=== PATIENT | male | born 1935 | race Asian ===

== ENCOUNTER 2018-01-08 17:26 | Inpatient (IN) | payer MEDICARE ==
[~2018-01-08] VITALS: Ht 177.8 cm; Wt 74.0 kg
[~2018-01-08 17:26] MED LIST: ASPI81TA52 PO; ATOR10TA PO; CHOL200035 PO; CYAN100070 PO; FISH1CAP2 PO; GABA-341 PO; INSU100V13 SQ; IRON-11 PO; LANS15CA10 PO; LANTUS SQ; LEVO75TA57 PO; MECL12.584 PO; MULT1TAB PO; OXYC-150 PO; RESERVATROL PO; UBIQUINOL; VALS80TA2 PO
[2018-01-08] MEDS ORDERED: normal saline 1000ML IV soln IVB ONE (18:10)
[2018-01-08 18:29] LABS: CLARITY,URINE CLEAR (Clear); COLOR,URINE STRAW (Yellow); GLUCOSE, URINE NEGATIVE (Neg); KETONES,URINE NEGATIVE (Neg); LEUKOCYTE ESTERASE ,URINE NEGATIVE (Neg); NITRITES, URINE NEGATIVE (Neg); OCCULT BLOOD,URINE TRACE-LYSED (Neg); PH,URINE 6.5 (4.8-8.0); PROTEIN,URINE 30 mg/dl (Neg); UROBILINOGEN,URINE 0.2 E.U/dL (0.2-1.0)
[2018-01-08 18:34] LABS: UA COLLECTION TYPE FOLEY CATH
[2018-01-08 18:39] LABS: ALANINE AMINOTRANSFERASE 25 U/L (12-78); ALBUMIN 3.5 G/DL (3.4-5.0); ALKALINE PHOSPHATASE 101 IU/L (46-116); ANION GAP 7 (8-16); ASPARTATE AMINO TRANSFERASE 17 U/L (10-37); BILIRUBIN,TOTAL 0.3 MG/DL (0.1-1.0); BLOOD UREA NITROGEN 25 MG/DL (7-18); BUN/CREATININE RATIO 26.3 (5.4-32.0); CALCIUM 9.1 MG/DL (8.5-10.1); CHLORIDE 96 MMOL/L (99-107); CREATININE 0.95 MG/DL (0.60-1.10); GLUCOSE 165 MG/DL (70-104); POTASSIUM 4.7 MMOL/L (3.5-5.1); SODIUM 129 MMOL/L (135-145); TOTAL CARBON DIOXIDE 26.3 MMOL/L (24-32); TOTAL PROTEIN 7.1 G/DL (6.4-8.2); eGFR 76 ML/MIN
[2018-01-08 18:41] LABS: URINE AMPHETAMINE SCREEN NEGATIVE (Neg); URINE BARBITUATE SCREEN NEGATIVE (Neg); URINE BENZODIAZEPINES SCREEN NEGATIVE (Neg); URINE CANNABINOID SCREEN NEGATIVE (Neg); URINE COCAINE SCREEN NEGATIVE (Neg); URINE METHADONE SCREEN NEGATIVE (Neg); URINE OPIATE SCREEN NEGATIVE (Neg); URINE PHENCYCLIDINE SCREEN NEGATIVE (Neg)
[2018-01-08 18:43] LABS: BACTERIA,URINE NONE SEEN /HPF (Neg); SQUAMOUS EPITHELIAL CELL,UR NONE SEEN /LPF (FEW); WBC,URINE 0-4 /HPF (0-4)
[2018-01-08 18:43] LABS: TROPONIN I < 0.04 NG/ML (0.0-0.05)
[2018-01-08 18:44] LABS: MUCUS STRANDS NONE SEEN /LPF (Neg)
[2018-01-08 18:51] LABS: ETHANOL < 0.010 GM/DL (0.0-0.010)
[2018-01-08 19:06] LABS: BASOPHILS % (AUTO) 0.2 % (0-1); EOSINOPHILS % (AUTO) 0.3 % (0-6); HEMATOCRIT 35.5 % (42.0-52.0); HEMOGLOBIN 11.9 g/dl (14.0-17.9); LYMPHOCYTES # (AUTO) 0.8 X10'3 (1.1-4.8); LYMPHOCYTES % (AUTO) 13.3 % (21-51); MEAN CORPUSCULAR HEMOGLOBIN 29.3 PG (27.0-31.0); MEAN CORPUSCULAR HGB CONC 33.5 % (33.0-36.5); MEAN CORPUSCULAR VOLUME 87.3 FL (78-98); MEAN PLATELET VOLUME 9.4 FL (7.4-10.4); MONOCYTES # (AUTO) 0.4 X10'3 (0-0.9); MONOCYTES % (AUTO) 6.6 % (2-12); NEUTROPHILS # (AUTO) 4.8 X10'3 (1.8-7.7); NEUTROPHILS % (AUTO) 79.6 % (42-75); PLATELET COUNT 173 X10'3 (140-440); RED BLOOD COUNT 4.07 X10'6 (4.70-6.10); RED CELL DISTRIBUTION WIDTH 14.2 % (11.5-14.5)
[2018-01-08 19:22] LABS: PARTIAL THROMBOPLASTIN TIME 25 SECONDS (22-32); PROTHROMBIN TIME 10.6 SECONDS (9.0-12.0)
[2018-01-08] MEDS ORDERED: INSU100V9 SQ (19:47)
[2018-01-08] MEDS ORDERED: CLOP75TA15 PO (19:47)
[2018-01-08] MEDS ORDERED: LOSA50TA3 PO (19:47)
[2018-01-08] MEDS ORDERED: glucagon, human recombinant 1mg kit SUBCUT PRN (20:30)
[2018-01-08] MEDS ORDERED: acetaminophen 325mg tablet PO PRN (20:30)
[2018-01-08] MEDS ORDERED: MESSAGE TO PHARMACY PO ONE (20:30)
[2018-01-08] MEDS ORDERED: dextrose ORAL solution 15 GM/59 ML bottle PO PRN ×2 (20:30)
[2018-01-08] MEDS ORDERED: mag hydrox/Alum hydrox/simeth 30ml oral suspension PO PRN (20:30)
[2018-01-08] MEDS ORDERED: ondansetron/PF 4mg/2ml inj IV PRN (20:30)
[2018-01-08] MEDS ORDERED: dextrose 50%-water 50ml dispensing syringe IV PRN ×2 (20:30)
[2018-01-08 21:03] LABS: CHOL/HDL RATIO 2.4 (0.00-4.99); CHOLESTEROL 150 MG/DL (0-200); HDL CHOLESTEROL 62 MG/DL (35-60); LDL CHOLESTEROL 75 MG/DL (50-100); TRIGLYCERIDES 49 MG/DL (20-135)
[2018-01-08] MEDS: normal saline 1000ml 1,000 ML IV SCH (22:35)
[2018-01-08] MEDS: atorvastatin 10mg tablet PO SCH (22:35)
[2018-01-08 22:45] VITALS: BP 138/81
[2018-01-09 05:00] VITALS: BP 187/76
[2018-01-09 06:45] LABS: BASOPHILS % (AUTO) 0.4 % (0-1); EOSINOPHILS # (AUTO) 0.2 X10'3 (0-0.9); EOSINOPHILS % (AUTO) 2.4 % (0-6); HEMATOCRIT 34.8 % (42.0-52.0); HEMOGLOBIN 11.6 g/dl (14.0-17.9); LYMPHOCYTES # (AUTO) 1.5 X10'3 (1.1-4.8); LYMPHOCYTES % (AUTO) 22.4 % (21-51); MEAN CORPUSCULAR HEMOGLOBIN 29.1 PG (27.0-31.0); MEAN CORPUSCULAR HGB CONC 33.4 % (33.0-36.5); MEAN CORPUSCULAR VOLUME 87.3 FL (78-98); MEAN PLATELET VOLUME 9.7 FL (7.4-10.4); MONOCYTES # (AUTO) 0.9 X10'3 (0-0.9); NEUTROPHILS # (AUTO) 4.1 X10'3 (1.8-7.7); NEUTROPHILS % (AUTO) 61.8 % (42-75); PLATELET COUNT 166 X10'3 (140-440); RED BLOOD COUNT 3.98 X10'6 (4.70-6.10); RED CELL DISTRIBUTION WIDTH 14.2 % (11.5-14.5); WHITE BLOOD COUNT 6.6 X10'3 (4.5-11.0)
[2018-01-09 06:52] LABS: ALBUMIN 2.9 G/DL (3.4-5.0); ANION GAP 6 (8-16); BLOOD UREA NITROGEN 17 MG/DL (7-18); BUN/CREATININE RATIO 23.3 (5.4-32.0); CALCIUM 8.4 MG/DL (8.5-10.1); CHLORIDE 103 MMOL/L (99-107); CREATININE 0.73 MG/DL (0.60-1.10); GLUCOSE 132 MG/DL (70-104); POTASSIUM 3.7 MMOL/L (3.5-5.1); SODIUM 136 MMOL/L (135-145); TOTAL CARBON DIOXIDE 26.8 MMOL/L (24-32); eGFR > 90 ML/MIN
[2018-01-09] MEDS: levoTHYROXINE 75mcg tablet PO SCH (07:56)
[2018-01-09] MEDS: aspirin 81mg tablet.DR PO SCH (08:00)
[2018-01-09] MEDS ORDERED: RESERVATROL PO SCH (08:00)
[2018-01-09] MEDS: OMEGA-3/DHA/EPA/FISH OIL 1 EACH CAPSULE.DR PO SCH (08:00)
[2018-01-09] MEDS: insulin glargine (Lantus) pen - multi-dose SQ SCH (08:13)
[2018-01-09] MEDS: losartan 50mg tablet PO SCH (09:50)
[2018-01-09] MEDS: clopidogrel 75mg tablet PO SCH (09:51)
[2018-01-09] MEDS: cyanocobalamin 500mcg tablet PO SCH (09:51)
[2018-01-09] MEDS: vitamin D (cholecalciferol) 1,000 unit tablet PO SCH (09:51)
[2018-01-09] MEDS: ferrous sulfate 325mg tablet PO SCH (09:51)
[2018-01-09] MEDS: pantoprazole 40mg Tablet.DR PO SCH (09:51)
[2018-01-09 10:00] VITALS: BP 191/62
[2018-01-09] MEDS ORDERED: pneumococcal 23-VAL P-sac vacc 25 mcg/0.5ml vial IMVAC ONE (10:00)
[2018-01-09] MEDS: multivitamins, therapeutics tablet PO SCH (10:05)
[2018-01-09] MEDS: amLODIPine 2.5mg tablet PO SCH (13:20)
[2018-01-09] MEDS: insulin Lispro (HumaLOG) vial - multi-dose SQ SCH ×2 (13:24→20:00)
[2018-01-09] MEDS: normal saline 1000ml 1,000 ML IV SCH (16:28)
[2018-01-09 18:00] VITALS: BP 173/69
[2018-01-09] MEDS: atorvastatin 10mg tablet PO SCH (20:02)
[2018-01-09 22:00] VITALS: BP 172/80
[2018-01-10 06:00] VITALS: BP 173/69
[2018-01-10 06:00] LABS: BASOPHILS % (AUTO) 0.5 % (0-1); EOSINOPHILS # (AUTO) 0.3 X10'3 (0-0.9); EOSINOPHILS % (AUTO) 5.1 % (0-6); HEMATOCRIT 34.4 % (42.0-52.0); HEMOGLOBIN 11.6 g/dl (14.0-17.9); LYMPHOCYTES # (AUTO) 1.5 X10'3 (1.1-4.8); LYMPHOCYTES % (AUTO) 22.2 % (21-51); MEAN CORPUSCULAR HEMOGLOBIN 29.1 PG (27.0-31.0); MEAN CORPUSCULAR HGB CONC 33.6 % (33.0-36.5); MEAN CORPUSCULAR VOLUME 86.6 FL (78-98); MEAN PLATELET VOLUME 9.5 FL (7.4-10.4); MONOCYTES # (AUTO) 0.9 X10'3 (0-0.9); MONOCYTES % (AUTO) 13.4 % (2-12); NEUTROPHILS # (AUTO) 3.9 X10'3 (1.8-7.7); NEUTROPHILS % (AUTO) 58.8 % (42-75); PLATELET COUNT 169 X10'3 (140-440); RED BLOOD COUNT 3.98 X10'6 (4.70-6.10); RED CELL DISTRIBUTION WIDTH 14.4 % (11.5-14.5); WHITE BLOOD COUNT 6.6 X10'3 (4.5-11.0)
[2018-01-10 06:09] LABS: ALBUMIN 2.9 G/DL (3.4-5.0); ANION GAP 5 (8-16); BLOOD UREA NITROGEN 16 MG/DL (7-18); BUN/CREATININE RATIO 23.5 (5.4-32.0); CHLORIDE 103 MMOL/L (99-107); CREATININE 0.68 MG/DL (0.60-1.10); GLUCOSE 118 MG/DL (70-104); POTASSIUM 3.9 MMOL/L (3.5-5.1); SODIUM 136 MMOL/L (135-145); TOTAL CARBON DIOXIDE 28.3 MMOL/L (24-32); eGFR > 90 ML/MIN
[2018-01-10 06:17] LABS: RPR Non Reactive (Non Reactive)
[2018-01-10] MEDS: levoTHYROXINE 75mcg tablet PO SCH (07:37)
[2018-01-10] MEDS: losartan 50mg tablet PO SCH (07:37)
[2018-01-10] MEDS: multivitamins, therapeutics tablet PO SCH (07:38)
[2018-01-10] MEDS: pantoprazole 40mg Tablet.DR PO SCH (07:38)
[2018-01-10] MEDS: amLODIPine 2.5mg tablet PO SCH (07:38)
[2018-01-10] MEDS: clopidogrel 75mg tablet PO SCH (07:38)
[2018-01-10] MEDS: ferrous sulfate 325mg tablet PO SCH (07:38)
[2018-01-10] MEDS: cyanocobalamin 500mcg tablet PO SCH (07:38)
[2018-01-10] MEDS: vitamin D (cholecalciferol) 1,000 unit tablet PO SCH (07:39)
[2018-01-10] MEDS: OMEGA-3/DHA/EPA/FISH OIL 1 EACH CAPSULE.DR PO SCH (07:39)
[2018-01-10] MEDS: aspirin 81mg tablet.DR PO SCH (07:41)
[2018-01-10] MEDS: insulin glargine (Lantus) pen - multi-dose SQ SCH (07:43)
[2018-01-10] MEDS: magnesium hydroxide 30ml (MOM) UD suspension PO PRN (10:15)
[2018-01-10] MEDS ORDERED: amLODIPine 2.5mg tablet PO ONE (15:15)
[2018-01-10 18:00] VITALS: BP 178/60
[2018-01-10] MEDS: insulin Lispro (HumaLOG) vial - multi-dose SQ SCH (19:11)
[2018-01-10] MEDS: atorvastatin 10mg tablet PO SCH (19:16)
[2018-01-10 22:00] VITALS: BP 157/75
[2018-01-11 05:00] VITALS: BP 159/85
[2018-01-11 05:26] LABS: BASOPHILS % (AUTO) 0.5 % (0-1); EOSINOPHILS # (AUTO) 0.7 X10'3 (0-0.9); EOSINOPHILS % (AUTO) 8.8 % (0-6); HEMATOCRIT 34.2 % (42.0-52.0); HEMOGLOBIN 11.5 g/dl (14.0-17.9); LYMPHOCYTES # (AUTO) 1.5 X10'3 (1.1-4.8); LYMPHOCYTES % (AUTO) 19.6 % (21-51); MEAN CORPUSCULAR HGB CONC 33.5 % (33.0-36.5); MEAN CORPUSCULAR VOLUME 86.6 FL (78-98); MEAN PLATELET VOLUME 9.7 FL (7.4-10.4); MONOCYTES # (AUTO) 1.1 X10'3 (0-0.9); MONOCYTES % (AUTO) 14.4 % (2-12); NEUTROPHILS # (AUTO) 4.2 X10'3 (1.8-7.7); NEUTROPHILS % (AUTO) 56.7 % (42-75); PLATELET COUNT 167 X10'3 (140-440); RED BLOOD COUNT 3.95 X10'6 (4.70-6.10); RED CELL DISTRIBUTION WIDTH 14.3 % (11.5-14.5); WHITE BLOOD COUNT 7.5 X10'3 (4.5-11.0)
[2018-01-11 05:58] LABS: ALBUMIN 2.8 G/DL (3.4-5.0); ANION GAP 6 (8-16); BLOOD UREA NITROGEN 20 MG/DL (7-18); BUN/CREATININE RATIO 25.3 (5.4-32.0); CALCIUM 9.2 MG/DL (8.5-10.1); CHLORIDE 102 MMOL/L (99-107); CREATININE 0.79 MG/DL (0.60-1.10); GLUCOSE 165 MG/DL (70-104); POTASSIUM 4.2 MMOL/L (3.5-5.1); SODIUM 134 MMOL/L (135-145); TOTAL CARBON DIOXIDE 25.6 MMOL/L (24-32); eGFR > 90 ML/MIN
[2018-01-11] MEDS: levoTHYROXINE 75mcg tablet PO SCH (07:29)
[2018-01-11 07:59] VITALS: BP 148/73
[2018-01-11] MEDS: amLODIPine 5mg tablet PO SCH (08:01)
[2018-01-11] MEDS: ferrous sulfate 325mg tablet PO SCH (08:01)
[2018-01-11] MEDS: aspirin 81mg tablet.DR PO SCH (08:01)
[2018-01-11] MEDS: pantoprazole 40mg Tablet.DR PO SCH (08:01)
[2018-01-11] MEDS: cyanocobalamin 500mcg tablet PO SCH (08:01)
[2018-01-11] MEDS: vitamin D (cholecalciferol) 1,000 unit tablet PO SCH (08:01)
[2018-01-11] MEDS: clopidogrel 75mg tablet PO SCH (08:01)
[2018-01-11] MEDS: multivitamins, therapeutics tablet PO SCH (08:01)
[2018-01-11] MEDS: losartan 50mg tablet PO SCH (08:01)
[2018-01-11] MEDS: insulin glargine (Lantus) pen - multi-dose SQ SCH (08:03)
[2018-01-11 10:00] VITALS: BP 149/55
[2018-01-11 11:31] LABS: TOTAL PROTEIN,URINE RANDOM 61.9 MG/DL
[2018-01-11] MEDS: insulin Lispro (HumaLOG) vial - multi-dose SQ SCH ×2 (13:52→20:12)
[2018-01-11 18:00] VITALS: BP 161/67
[2018-01-11] MEDS: atorvastatin 10mg tablet PO SCH (20:16)
[2018-01-11] MEDS: triamcinolone acet 0.1% cream 15gm TP SCH (21:14)
[2018-01-11 22:00] VITALS: BP 148/68
[2018-01-12] MEDS: acetaminophen 325mg tablet PO PRN ×2 (04:55→04:58)
[2018-01-12 05:59] LABS: BASOPHILS % (AUTO) 0.3 % (0-1); EOSINOPHILS # (AUTO) 0.7 X10'3 (0-0.9); EOSINOPHILS % (AUTO) 9.4 % (0-6); HEMATOCRIT 34.1 % (42.0-52.0); HEMOGLOBIN 11.5 g/dl (14.0-17.9); LYMPHOCYTES # (AUTO) 1.5 X10'3 (1.1-4.8); LYMPHOCYTES % (AUTO) 20.3 % (21-51); MEAN CORPUSCULAR HEMOGLOBIN 29.2 PG (27.0-31.0); MEAN CORPUSCULAR HGB CONC 33.8 % (33.0-36.5); MEAN CORPUSCULAR VOLUME 86.4 FL (78-98); MEAN PLATELET VOLUME 9.4 FL (7.4-10.4); MONOCYTES % (AUTO) 13.8 % (2-12); NEUTROPHILS # (AUTO) 4.3 X10'3 (1.8-7.7); NEUTROPHILS % (AUTO) 56.2 % (42-75); PLATELET COUNT 168 X10'3 (140-440); RED BLOOD COUNT 3.95 X10'6 (4.70-6.10); RED CELL DISTRIBUTION WIDTH 14.4 % (11.5-14.5); WHITE BLOOD COUNT 7.6 X10'3 (4.5-11.0)
[2018-01-12 06:09] LABS: ALBUMIN 2.8 G/DL (3.4-5.0); ANION GAP 7 (8-16); BLOOD UREA NITROGEN 23 MG/DL (7-18); BUN/CREATININE RATIO 30.7 (5.4-32.0); CALCIUM 8.6 MG/DL (8.5-10.1); CHLORIDE 100 MMOL/L (99-107); CREATININE 0.75 MG/DL (0.60-1.10); GLUCOSE 151 MG/DL (70-104); POTASSIUM 4.1 MMOL/L (3.5-5.1); SODIUM 133 MMOL/L (135-145); TOTAL CARBON DIOXIDE 26.3 MMOL/L (24-32); eGFR > 90 ML/MIN
[2018-01-12 06:11] VITALS: BP 156/58
[2018-01-12] MEDS: levoTHYROXINE 75mcg tablet PO SCH (07:16)
[2018-01-12] MEDS: triamcinolone acet 0.1% cream 15gm TP SCH (07:39)
[2018-01-12] MEDS: multivitamins, therapeutics tablet PO SCH (08:52)
[2018-01-12] MEDS: ferrous sulfate 325mg tablet PO SCH (08:52)
[2018-01-12] MEDS: amLODIPine 5mg tablet PO SCH (08:52)
[2018-01-12] MEDS: aspirin 81mg tablet.DR PO SCH (08:52)
[2018-01-12] MEDS: clopidogrel 75mg tablet PO SCH (08:52)
[2018-01-12] MEDS: pantoprazole 40mg Tablet.DR PO SCH (08:52)
[2018-01-12] MEDS: vitamin D (cholecalciferol) 1,000 unit tablet PO SCH (08:52)
[2018-01-12] MEDS: cyanocobalamin 500mcg tablet PO SCH (08:52)
[2018-01-12] MEDS: losartan 50mg tablet PO SCH (08:52)
[2018-01-12] MEDS: insulin glargine (Lantus) pen - multi-dose SQ SCH (08:54)
[2018-01-12] MEDS: insulin Lispro (HumaLOG) vial - multi-dose SQ SCH ×2 (08:55→13:48)
[2018-01-12] MEDS: magnesium hydroxide 30ml (MOM) UD suspension PO PRN (09:48)
[2018-01-12 10:09] VITALS: BP 166/55
== END 2018-01-12 14:40 | disposition home or self-care (01) | DRG 637 ==
LOC: ER 17:26 → ED HOLD 20:28 → ORTHO 4S 21:48
PROVIDERS: ADMIT Hospitalist; ATTEND Family Medicine
DX: E11.65 Type 2 diabetes mellitus with hyperglycemia (principal); G93.41 Metabolic encephalopathy; E87.1 Hypo-osmolality and hyponatremia; E03.9 Hypothyroidism, unspecified; E78.00 Pure hypercholesterolemia, unspecified; I10 Essential (primary) hypertension; M75.02 Adhesive capsulitis of left shoulder; I25.10 Atherosclerotic heart disease of native coronary artery without angina pectoris; R79.89 Other specified abnormal findings of blood chemistry; G89.29 Other chronic pain; M54.9 Dorsalgia, unspecified; N40.0 Benign prostatic hyperplasia without lower urinary tract symptoms; I25.2 Old myocardial infarction; Z95.1 Presence of aortocoronary bypass graft; Z28.21 Immunization not carried out because of patient refusal; Z91.018 Allergy to other foods; Z79.899 Other long term (current) drug therapy; Z79.4 Long term (current) use of insulin; Z79.02 Long term (current) use of antithrombotics/antiplatelets
CPT/HCPCS: 36415; 70450; 70544; 70551; 71045; 80048; 80053; 80061; 80305; 80320; 81001; 82140; 82570; 82607; 82948; 83036; 83935; 84133; 84156; 84300; 84443; 84484; 85025; 85610; 85730; 86592; 87070; 90732; 92616; 93005; 96360; 97110; 97116; 97161; 97530; 97535; 99285; A4353; A6212; A6402; A6449; J1815; J7030

== ENCOUNTER 2018-08-11 16:05 | Emergency (ER) | payer MEDICARE ==
[~2018-08-11] VITALS: Ht 165.1 cm; Wt 75.0 kg
[~2018-08-11 16:05] MED LIST changes: -ASPI81TA52 PO; +CLOP75TA15 PO; +INSU100V9 SQ; -LANTUS SQ; +LOSA50TA3 PO; -MECL12.584 PO; -OXYC-150 PO; -VALS80TA2 PO
[2018-08-11] MEDS ORDERED: normal saline 1000ML IV soln IVB ONE (16:55)
--- NOTE | 2018-08-11 17:55 | NUR ---
Dr Magallanes aware of BP 170/92. Stated he did not want to do anything about it.
[2018-08-11 17:56] LABS: BASOPHILS % (AUTO) 0.7 % (0-1); EOSINOPHILS # (AUTO) 0.2 X10'3 (0-0.9); EOSINOPHILS % (AUTO) 3.5 % (0-6); HEMATOCRIT 37.5 % (42.0-52.0); HEMOGLOBIN 12.3 g/dl (14.0-17.9); LYMPHOCYTES # (AUTO) 1.4 X10'3 (1.1-4.8); LYMPHOCYTES % (AUTO) 21.3 % (21-51); MEAN CORPUSCULAR HEMOGLOBIN 28.4 PG (27.0-31.0); MEAN CORPUSCULAR HGB CONC 32.7 g/dL (33.0-36.5); MEAN CORPUSCULAR VOLUME 86.8 FL (78-98); MEAN PLATELET VOLUME 9.6 FL (7.4-10.4); MONOCYTES % (AUTO) 15.4 % (2-12); NEUTROPHILS # (AUTO) 3.9 X10'3 (1.8-7.7); NEUTROPHILS % (AUTO) 59.1 % (42-75); PLATELET COUNT 196 X10'3 (140-440); RED BLOOD COUNT 4.32 X10'6 (4.70-6.10); RED CELL DISTRIBUTION WIDTH 14.5 % (11.5-14.5); WHITE BLOOD COUNT 6.6 X10'3 (4.5-11.0)
[2018-08-11 17:56] LABS: CLARITY,URINE SLIGHTLY CLOUDY (Clear); COLOR,URINE YELLOW (Yellow); GLUCOSE, URINE NEGATIVE (Neg); KETONES,URINE NEGATIVE (Neg); LEUKOCYTE ESTERASE ,URINE SMALL (Neg); NITRITES, URINE NEGATIVE (Neg); OCCULT BLOOD,URINE NEGATIVE (Neg); PROTEIN,URINE NEGATIVE (Neg); UROBILINOGEN,URINE 0.2 E.U/dL (0.2-1.0)
[2018-08-11 17:57] LABS: UA COLLECTION TYPE CLN CATCH MIDSTREAM
[2018-08-11 18:05] LABS: ALANINE AMINOTRANSFERASE 25 U/L (12-78); ALBUMIN 3.3 G/DL (3.4-5.0); ALBUMIN/GLOBULIN RATIO 0.9 (1.1-1.5); ALKALINE PHOSPHATASE 107 IU/L (46-116); ANION GAP 5 (8-16); ASPARTATE AMINO TRANSFERASE 20 U/L (10-37); BILIRUBIN,TOTAL 0.2 MG/DL (0.1-1.0); BLOOD UREA NITROGEN 23 MG/DL (7-18); BUN/CREATININE RATIO 23.5 (5.4-32.0); CALCIUM 9.3 MG/DL (8.5-10.1); CHLORIDE 100 MMOL/L (99-107); CREATININE 0.98 MG/DL (0.60-1.10); GLUCOSE 109 MG/DL (70-104); POTASSIUM 4.6 MMOL/L (3.5-5.1); SODIUM 136 MMOL/L (135-145); TOTAL CARBON DIOXIDE 30.8 MMOL/L (24-32); TOTAL PROTEIN 7.1 G/DL (6.4-8.2); eGFR 73 ML/MIN
[2018-08-11 18:05] LABS: BACTERIA,URINE 3+ /HPF (Neg); MUCUS STRANDS NONE SEEN /LPF (Neg); RBC,URINE NONE SEEN /HPF (0-2); SQUAMOUS EPITHELIAL CELL,UR FEW /LPF (FEW); WBC,URINE 0-4 /HPF (0-4)
[2018-08-11 20:18] VITALS: BP 161/74
== END 2018-08-11 20:20 | disposition home or self-care (01) ==
LOC: ER 16:06
DX: R41.82 Altered mental status, unspecified (principal); I25.10 Atherosclerotic heart disease of native coronary artery without angina pectoris; E78.00 Pure hypercholesterolemia, unspecified; I10 Essential (primary) hypertension; E11.9 Type 2 diabetes mellitus without complications; G89.29 Other chronic pain; Z95.1 Presence of aortocoronary bypass graft; Z91.018 Allergy to other foods; Z79.4 Long term (current) use of insulin; Z79.899 Other long term (current) drug therapy
CPT/HCPCS: 36415; 70450; 71045; 80053; 81001; 85025; 87077; 87088; 93005; 99284; J7030

== ENCOUNTER 2018-12-27 10:23 | Emergency (ER) | payer MEDICARE ==
[~2018-12-27] VITALS: Ht 165.1 cm; Wt 68.2 kg
[~2018-12-27 10:23] MED LIST changes: +HC A30CR2 RC
[2018-12-27] MEDS ORDERED: normal saline 1000ML IV soln IVB ONE (10:35)
[2018-12-27] MEDS ORDERED: cloNIDine 0.1 mg tablet PO ONE (10:40)
[2018-12-27 11:06] LABS: BASOPHILS % (AUTO) 0.5 % (0-1); EOSINOPHILS # (AUTO) 0.2 X10'3 (0-0.9); EOSINOPHILS % (AUTO) 2.6 % (0-6); HEMATOCRIT 38.2 % (42.0-52.0); HEMOGLOBIN 12.5 g/dl (14.0-17.9); LYMPHOCYTES # (AUTO) 1.5 X10'3 (1.1-4.8); LYMPHOCYTES % (AUTO) 19.9 % (21-51); MEAN CORPUSCULAR HEMOGLOBIN 28.6 PG (27.0-31.0); MEAN CORPUSCULAR HGB CONC 32.8 g/dL (33.0-36.5); MEAN CORPUSCULAR VOLUME 87.4 FL (78-98); MEAN PLATELET VOLUME 8.6 FL (7.4-10.4); MONOCYTES # (AUTO) 0.9 X10'3 (0-0.9); NEUTROPHILS # (AUTO) 4.9 X10'3 (1.8-7.7); PLATELET COUNT 217 X10'3 (140-440); RED BLOOD COUNT 4.38 X10'6 (4.70-6.10); RED CELL DISTRIBUTION WIDTH 14.1 % (11.5-14.5); WHITE BLOOD COUNT 7.5 X10'3 (4.5-11.0)
[2018-12-27 11:21] LABS: ALANINE AMINOTRANSFERASE 25 U/L (12-78); ALBUMIN 3.2 G/DL (3.4-5.0); ALBUMIN/GLOBULIN RATIO 0.8 (1.1-1.5); ALKALINE PHOSPHATASE 97 IU/L (46-116); ANION GAP 5 (8-16); ASPARTATE AMINO TRANSFERASE 14 U/L (10-37); BILIRUBIN,TOTAL 0.4 MG/DL (0.1-1.0); BLOOD UREA NITROGEN 18 MG/DL (7-18); BUN/CREATININE RATIO 20.7 (5.4-32.0); CHLORIDE 99 MMOL/L (99-107); CREATININE 0.87 MG/DL (0.60-1.10); GLUCOSE 211 MG/DL (70-104); POTASSIUM 4.3 MMOL/L (3.5-5.1); SODIUM 133 MMOL/L (135-145); TOTAL CARBON DIOXIDE 28.7 MMOL/L (24-32); eGFR 84 ML/MIN
--- NOTE | 2018-12-27 11:54 | NUR ---
attempted gait test on pt. Pt refused to attempt gait test. Stated he was too hungry and tired to try to walk. Pt stated if we gave him a snack and let him take a nap he would try to walk after he woke up from his nap. Provider Toby notified
[2018-12-27 13:03] VITALS: BP 162/70
== END 2018-12-27 13:04 | disposition home or self-care (01) ==
LOC: EDSEX → ER 10:23
DX: R42 Dizziness and giddiness (principal); I10 Essential (primary) hypertension; I25.10 Atherosclerotic heart disease of native coronary artery without angina pectoris; E78.00 Pure hypercholesterolemia, unspecified; I25.2 Old myocardial infarction; G89.29 Other chronic pain; Z95.1 Presence of aortocoronary bypass graft; Z91.018 Allergy to other foods; Z79.899 Other long term (current) drug therapy; Z79.4 Long term (current) use of insulin
CPT/HCPCS: 36415; 71045; 80053; 83880; 84484; 85025; 85610; 93005; 96360; 99284; J7030

== ENCOUNTER 2019-01-29 02:00 | Emergency (ER) | payer MEDICARE ==
[~2019-01-29] VITALS: Ht 165.1 cm; Wt 72.7 kg
[2019-01-29] MEDS ORDERED: ondansetron/PF 4mg/2ml inj IV ONE (02:10)
[2019-01-29] MEDS ORDERED: normal saline 1000ml 1,000 ML IV ONE (02:10)
[2019-01-29 02:45] LABS: BASOPHILS % (AUTO) 0.2 % (0-1); EOSINOPHILS % (AUTO) 0.2 % (0-6); HEMATOCRIT 35.3 % (42.0-52.0); HEMOGLOBIN 11.6 g/dl (14.0-17.9); LYMPHOCYTES % (AUTO) 6.7 % (21-51); MEAN CORPUSCULAR HEMOGLOBIN 28.9 PG (27.0-31.0); MEAN CORPUSCULAR HGB CONC 32.9 g/dL (33.0-36.5); MEAN CORPUSCULAR VOLUME 87.8 FL (78-98); MEAN PLATELET VOLUME 9.2 FL (7.4-10.4); MONOCYTES # (AUTO) 1.8 X10'3 (0-0.9); MONOCYTES % (AUTO) 12.2 % (2-12); NEUTROPHILS # (AUTO) 11.7 X10'3 (1.8-7.7); NEUTROPHILS % (AUTO) 80.7 % (42-75); PLATELET COUNT 182 X10'3 (140-440); RED BLOOD COUNT 4.02 X10'6 (4.70-6.10); RED CELL DISTRIBUTION WIDTH 14.2 % (11.5-14.5); WHITE BLOOD COUNT 14.5 X10'3 (4.5-11.0)
[2019-01-29 02:54] LABS: ALANINE AMINOTRANSFERASE 21 U/L (12-78); ALBUMIN/GLOBULIN RATIO 0.8 (1.1-1.5); ALKALINE PHOSPHATASE 85 IU/L (46-116); ANION GAP 7 (8-16); ASPARTATE AMINO TRANSFERASE 15 U/L (10-37); BILIRUBIN,TOTAL 0.5 MG/DL (0.1-1.0); BLOOD UREA NITROGEN 15 MG/DL (7-18); BUN/CREATININE RATIO 19.2 (5.4-32.0); CHLORIDE 98 MMOL/L (99-107); CREATININE 0.78 MG/DL (0.60-1.10); GLUCOSE 221 MG/DL (70-104); MAGNESIUM 1.6 MG/DL (1.5-2.4); POTASSIUM 4.2 MMOL/L (3.5-5.1); SODIUM 131 MMOL/L (135-145); TOTAL CARBON DIOXIDE 26.1 MMOL/L (24-32); eGFR > 90 ML/MIN
[2019-01-29 04:07] VITALS: BP 145/75
[2019-01-29 04:15] LABS: CLARITY,URINE CLEAR (Clear); COLOR,URINE YELLOW (Yellow); GLUCOSE, URINE 250 mg/dl (Neg); KETONES,URINE TRACE mg/dl (Neg); LEUKOCYTE ESTERASE ,URINE NEGATIVE (Neg); NITRITES, URINE NEGATIVE (Neg); OCCULT BLOOD,URINE TRACE-INTACT (Neg); PROTEIN,URINE TRACE mg/dl (Neg); UROBILINOGEN,URINE 0.2 E.U/dL (0.2-1.0)
[2019-01-29 04:21] LABS: UA COLLECTION TYPE STRAIGHT CATH
[2019-01-29 04:22] LABS: BACTERIA,URINE NONE SEEN /HPF (Neg); RBC,URINE 0-2 /HPF (0-2); SQUAMOUS EPITHELIAL CELL,UR FEW /LPF (FEW); WBC,URINE NONE SEEN /HPF (0-4)
[2019-01-29] MEDS ORDERED: ONDA8TAB6 PO (04:39)
[2019-01-29] MEDS ORDERED: proCHLORperazine 10mg tablet PO ONE (04:55)
[2019-01-30] MEDS ORDERED: CYAN500T46 PO (18:26)
[2019-01-30] MEDS ORDERED: CHOL100046 PO (18:26)
[2019-01-30] MEDS ORDERED: RESV1TAB2 PO (18:26)
[2019-01-30] MEDS ORDERED: DICL100G15 TOP (18:26)
[2019-01-30] MEDS ORDERED: VALS80TA32 PO (18:26)
[2019-01-30] MEDS ORDERED: POLY17PO10 PO (18:26)
[2019-01-30] MEDS ORDERED: UBID30CA19 PO (18:26)
[2019-01-30] MEDS ORDERED: AMLO2.5T5 PO (18:26)
[2019-01-30] MEDS ORDERED: IRON18TA PO (18:26)
== END 2019-01-29 05:28 | disposition home or self-care (01) ==
LOC: EDSEX → ER 02:01
DX: D72.829 Elevated white blood cell count, unspecified (principal); R42 Dizziness and giddiness; I25.10 Atherosclerotic heart disease of native coronary artery without angina pectoris; E78.00 Pure hypercholesterolemia, unspecified; I10 Essential (primary) hypertension; I25.2 Old myocardial infarction; N40.0 Benign prostatic hyperplasia without lower urinary tract symptoms; E11.9 Type 2 diabetes mellitus without complications; E07.9 Disorder of thyroid, unspecified; G89.29 Other chronic pain; Z95.1 Presence of aortocoronary bypass graft; Z91.013 Allergy to seafood; Z79.4 Long term (current) use of insulin
CPT/HCPCS: 36415; 71045; 80053; 81001; 83735; 84145; 84484; 85025; 93005; 96361; 96374; 99284; J2405; J7030; P9612; Q0164

== ENCOUNTER 2019-01-30 14:00 | Inpatient (IN) | payer MEDICARE ==
[~2019-01-30] VITALS: Ht 165.1 cm; Wt 74.0 kg
[~2019-01-30 14:00] MED LIST changes: +ONDA8TAB6 PO
[2019-01-30] MEDS ORDERED: fentaNYL/PF 50MCG/1 ML 2ML syringe IV ONE (14:20)
[2019-01-30] MEDS ORDERED: ondansetron/PF 4mg/2ml inj IV ONE (14:20)
[2019-01-30] MEDS ORDERED: normal saline 1000ML IV soln IVB ONE (14:20)
[2019-01-30 15:27] LABS: BASOPHILS % (AUTO) 0.1 % (0-1); EOSINOPHILS % (AUTO) 0 % (0-6); HEMATOCRIT 40.6 % (42.0-52.0); HEMOGLOBIN 13.4 g/dl (14.0-17.9); LYMPHOCYTES # (AUTO) 0.8 X10'3 (1.1-4.8); LYMPHOCYTES % (AUTO) 4.2 % (21-51); MEAN CORPUSCULAR HEMOGLOBIN 28.7 PG (27.0-31.0); MEAN CORPUSCULAR HGB CONC 32.9 g/dL (33.0-36.5); MEAN CORPUSCULAR VOLUME 87.1 FL (78-98); MEAN PLATELET VOLUME 9.1 FL (7.4-10.4); MONOCYTES # (AUTO) 1.8 X10'3 (0-0.9); MONOCYTES % (AUTO) 9.8 % (2-12); NEUTROPHILS % (AUTO) 85.9 % (42-75); PLATELET COUNT 223 X10'3 (140-440); RED BLOOD COUNT 4.66 X10'6 (4.70-6.10); RED CELL DISTRIBUTION WIDTH 14.3 % (11.5-14.5); WHITE BLOOD COUNT 18.6 X10'3 (4.5-11.0)
[2019-01-30 15:47] LABS: ALANINE AMINOTRANSFERASE 39 U/L (12-78); ALBUMIN 2.8 G/DL (3.4-5.0); ALBUMIN/GLOBULIN RATIO 0.6 (1.1-1.5); ALKALINE PHOSPHATASE 92 IU/L (46-116); ANION GAP 9 (8-16); ASPARTATE AMINO TRANSFERASE 25 U/L (10-37); BILIRUBIN,TOTAL 0.7 MG/DL (0.1-1.0); BLOOD UREA NITROGEN 15 MG/DL (7-18); BUN/CREATININE RATIO 15.8 (5.4-32.0); CALCIUM 9.2 MG/DL (8.5-10.1); CHLORIDE 98 MMOL/L (99-107); CREATININE 0.95 MG/DL (0.60-1.10); GLUCOSE 227 MG/DL (70-104); POTASSIUM 4.3 MMOL/L (3.5-5.1); SODIUM 132 MMOL/L (135-145); TOTAL CARBON DIOXIDE 25.3 MMOL/L (24-32); TOTAL PROTEIN 7.6 G/DL (6.4-8.2); eGFR 76 ML/MIN
[2019-01-30] MEDS ORDERED: enoxaparin 100mg/ml syringe SUBCUT ONE (15:55)
[2019-01-30] MEDS ORDERED: CefTRIAXone 2gm/D5W 50ml 50 ML IV ONE (15:55)
[2019-01-30] MEDS ORDERED: normal saline 1000ML IV soln IV ONE (15:55)
[2019-01-30] MEDS ORDERED: aspirin 81mg tab.chew PO ONE (15:55)
[2019-01-30] MEDS ORDERED: iohexol 300mg/ml 100ml inj. ONE ×2 (16:00→16:54)
[2019-01-30] MEDS ORDERED: LIDOcaine 2% 10ml TOPICAL JELLY (Urojet) MM ONE (17:00)
[2019-01-30] MEDS ORDERED: acetaminophen 325mg tablet PO PRN (17:50)
[2019-01-30] MEDS ORDERED: MESSAGE TO PHARMACY PO ONE (17:50)
[2019-01-30] MEDS ORDERED: magnesium hydroxide 30ml (MOM) UD suspension PO PRN (17:50)
[2019-01-30] MEDS ORDERED: glucagon, human recombinant 1mg kit SUBCUT PRN (17:50)
[2019-01-30] MEDS ORDERED: morphine 2 MG/ML inj. syringe IV PRN (17:50)
[2019-01-30] MEDS ORDERED: mag hydrox/Alum hydrox/simeth 30ml oral suspension PO PRN (17:50)
[2019-01-30] MEDS ORDERED: dextrose ORAL solution 15 GM/59 ML bottle PO PRN ×2 (17:50)
[2019-01-30] MEDS ORDERED: dextrose 50%-water 50ml dispensing syringe IV PRN ×2 (17:50)
[2019-01-30] MEDS: normal saline 1000ml 1,000 ML IV SCH (18:08)
[2019-01-30 18:23] LABS: HEMOGLOBIN A1C 7.6 % (4.5-6.2)
[2019-01-30] MEDS ORDERED: RESV1TAB2 PO (18:26)
[2019-01-30] MEDS ORDERED: CHOL100046 PO (18:26)
[2019-01-30] MEDS ORDERED: UBID30CA19 PO (18:26)
[2019-01-30] MEDS ORDERED: IRON18TA PO (18:26)
[2019-01-30] MEDS ORDERED: CYAN500T46 PO (18:26)
[2019-01-30] MEDS ORDERED: VALS80TA32 PO (18:26)
[2019-01-30] MEDS ORDERED: AMLO2.5T5 PO (18:26)
[2019-01-30] MEDS ORDERED: POLY17PO10 PO (18:26)
[2019-01-30] MEDS ORDERED: DICL100G15 TOP (18:26)
[2019-01-30 18:33] LABS: CLARITY,URINE SLIGHTLY CLOUDY (Clear); COLOR,URINE STRAW (Yellow); GLUCOSE, URINE 500 mg/dl (Neg); KETONES,URINE 15 mg/dl (Neg); LEUKOCYTE ESTERASE ,URINE NEGATIVE (Neg); NITRITES, URINE NEGATIVE (Neg); OCCULT BLOOD,URINE MODERATE (Neg); PROTEIN,URINE 100 mg/dl (Neg); UROBILINOGEN,URINE 0.2 E.U/dL (0.2-1.0)
[2019-01-30 18:43] LABS: UA COLLECTION TYPE URINAL
[2019-01-30 18:53] LABS: BACTERIA,URINE 3+ /HPF (Neg); MUCUS STRANDS FEW /LPF (Neg); RBC,URINE 0-2 /HPF (0-2); SQUAMOUS EPITHELIAL CELL,UR FEW /LPF (FEW); WBC CLUMPS,URINE MODERATE /HPF (NEGATIVE)
[2019-01-30] MEDS: piperacillin/tazo 4.5gm/100ml 100 ML IV SCH (19:16)
--- NOTE | 2019-01-30 19:31 | NUR ---
Patient incontinent of urine, pericare and linen cng provided. Patient to the floor.
[2019-01-30 20:00] VITALS: BP 151/84
[2019-01-30] MEDS: insulin glargine (Lantus) pen - multi-dose SQ SCH (21:00)
--- NOTE | 2019-01-30 22:00 | NUR ---
Patient in room PCU 3022. I have received report from Clarisa MAYEN from ER on telephone, had the opportunity to ask questions and assume patient care. Patient is in bed, comfortable, and has stable vital signs; will continue to monitor.
--- NOTE | 2019-01-30 22:49 | NUR ---
Burger Cath Attempted to put a Burger in but would not go through, stopped the procedure when patient complained of pain. Placed a condom-cath instead. MD Magallanes was notified, Burger order stopped, and will continue to monitor patient.
[2019-01-30 23:00] VITALS: BP 165/82
[2019-01-30] MEDS ORDERED: heparin 25,000 UNIT/250ml bag 250 ML IV SCH (23:24)
[2019-01-30] MEDS ORDERED: heparin 10,000 units/1 ML INJ IV PRN (23:25)
[2019-01-30] MEDS ORDERED: heparin 10,000 units/1 ML INJ IV ONE (23:25)
[2019-01-31] VITALS (12 sets, daily range): BP systolic 93–187; BP diastolic 54–100
[2019-01-31] MEDS: piperacillin/tazo 4.5gm/100ml 100 ML IV SCH ×3 (02:16→20:07)
--- NOTE | 2019-01-31 02:35 | NUR ---
High Blood pressure 170/90, HR 118, patient not symptomatic, MD Magallanes notified, no new orders given, will continue to monitor.
[2019-01-31] MEDS: ondansetron/PF 4mg/2ml inj IV PRN (02:42)
[2019-01-31] MEDS: normal saline 1000ml 1,000 ML IV SCH (03:46)
--- NOTE | 2019-01-31 06:00 | NUR ---
Patient in room PCU 3022. I have received report from Randee and had the opportunity to ask questions and assume patient care.
--- NOTE | 2019-01-31 06:10 | NUR ---
Patient in room PCU 3022. I have received report from Bethany and had the opportunity to ask questions and assume patient care.
--- NOTE | 2019-01-31 06:23 | NUR ---
Problems reprioritized. Patient report given, questions answered & plan of care reviewed with Breanna MAYEN.
[2019-01-31 06:34] LABS: ALBUMIN 2.2 G/DL (3.4-5.0); ANION GAP 10 (8-16); BLOOD UREA NITROGEN 15 MG/DL (7-18); BUN/CREATININE RATIO 16.3 (5.4-32.0); CALCIUM 9.2 MG/DL (8.5-10.1); CHLORIDE 103 MMOL/L (99-107); CHOL/HDL RATIO 1.8 (0.00-4.99); CHOLESTEROL 101 MG/DL (0-200); CREATININE 0.92 MG/DL (0.60-1.10); GLUCOSE 251 MG/DL (70-104); HDL CHOLESTEROL 57 MG/DL (35-60); LDL CHOLESTEROL 36 MG/DL (50-100); POTASSIUM 3.1 MMOL/L (3.5-5.1); SODIUM 136 MMOL/L (135-145); TOTAL CARBON DIOXIDE 22.6 MMOL/L (24-32); TRIGLYCERIDES 31 MG/DL (20-135); eGFR 78 ML/MIN
[2019-01-31 06:51] LABS: BASOPHILS % (AUTO) 0.1 % (0-1); EOSINOPHILS % (AUTO) 0 % (0-6); HEMOGLOBIN 12.7 g/dl (14.0-17.9); LYMPHOCYTES # (AUTO) 0.9 X10'3 (1.1-4.8); MEAN CORPUSCULAR HEMOGLOBIN 29.2 PG (27.0-31.0); MEAN CORPUSCULAR HGB CONC 33.4 g/dL (33.0-36.5); MEAN CORPUSCULAR VOLUME 87.4 FL (78-98); MEAN PLATELET VOLUME 9.5 FL (7.4-10.4); MONOCYTES # (AUTO) 2.4 X10'3 (0-0.9); MONOCYTES % (AUTO) 10.8 % (2-12); NEUTROPHILS # (AUTO) 18.7 X10'3 (1.8-7.7); NEUTROPHILS % (AUTO) 85.1 % (42-75); PLATELET COUNT 236 X10'3 (140-440); RED BLOOD COUNT 4.35 X10'6 (4.70-6.10); RED CELL DISTRIBUTION WIDTH 14.2 % (11.5-14.5); WHITE BLOOD COUNT 21.9 X10'3 (4.5-11.0)
[2019-01-31] MEDS: insulin Lispro (HumaLOG) vial - multi-dose SQ SCH ×3 (07:22→19:11)
[2019-01-31] MEDS: HYDROcodone/acetaminophen 5mg/325mg tablet PO PRN (07:32)
--- NOTE | 2019-01-31 07:43 | NUR ---
Received call from Dr Hall. He would like to know if cardiology is going to consult on the patient as his troponin was 8.63. There is no clear documentation stating that they have been consulted. Spoke with Thuy Kowalski and she is not aware of the patient and states that Dr. Saleem is consulting technical director. Paged Dr Loco "PAGER ID: [phone] MESSAGE: [phone] Sofia [phone] James Tran patient's 12 hour troponin last night was 8.63 and it is unclear if cardiology has been consulted. Dr Hall would like to know if cardio is going to consult." Awaiting call back... Addendum: 01/31/19 at 0745 by Sofia Colunga RN Thuy Kowalski states that ER's note states the patient sees Dr. Cruz. She is calling his office to find out if he is a current patient. Addendum: 01/31/19 at 0811 by Sofia Colunga RN Thuy Kowalski spoke with Dr Cruz and stated she will see the patient. Called Dr Hall to inform him.
[2019-01-31] MEDS ORDERED: NORMAL SALINE IV ONE (08:00)
[2019-01-31] MEDS ORDERED: SINCALIDE IV ONE (08:00)
[2019-01-31 08:39] LABS: PLATELET ESTIMATE NORMAL; TOTAL CELLS COUNTED 100
--- NOTE | 2019-01-31 09:14 | NUR ---
per IR leave heparin drip off, patient to go for aniceto drain placement.
[2019-01-31] MEDS: losartan 50mg tablet PO SCH ×2 (09:21→09:51)
[2019-01-31] MEDS: vitamin D (cholecalciferol) 1,000 unit tablet PO SCH (09:32)
[2019-01-31] MEDS: cyanocobalamin 500mcg tablet PO SCH (09:33)
[2019-01-31] MEDS: levoTHYROXINE 75mcg tablet PO SCH (09:34)
[2019-01-31] MEDS: pantoprazole 40mg Tablet.DR PO SCH (09:36)
[2019-01-31] MEDS: carVEDilol 3.125mg tablet PO SCH ×2 (09:48→20:09)
[2019-01-31] MEDS ORDERED: fentaNYL/PF 50MCG/1 ML 2ML syringe IV PRN (10:15)
[2019-01-31] MEDS ORDERED: midazolam 2 mg/2 ml injection IV PRN (10:15)
[2019-01-31] MEDS ORDERED: LIDOcaine 1%/PF 5ML 10 MG/ML VIAL SQ ONE (10:15)
[2019-01-31] MEDS ORDERED: LIDOcaine 1%/PF 5ML 10 MG/ML VIAL ONE (10:26)
[2019-01-31] MEDS ORDERED: midazolam 2 mg/2 ml injection ONE (10:26)
[2019-01-31] MEDS ORDERED: fentaNYL/PF 50MCG/1 ML 2ML syringe ONE ×2 (10:26→11:18)
[2019-01-31] MEDS ORDERED: iohexol 300 MG/1 ML 50ml polymer ONE (11:02)
[2019-01-31] MEDS ORDERED: enoxaparin 100mg/ml syringe SUBCUT SCH (12:05)
--- NOTE | 2019-01-31 12:11 | NUR ---
DM Consult: A1C 7.6. Pt admit w/ acute cholecystitis pending cholecystostomy drain today per MD note; currently NPO. Per MD note pt is poor historian and has caregivers at home w/ SO. A1C remains between 6.8-7.6 past 2 years decent given age. Currently not appropriate for DM ed at this time. Written DM ed w/ RD contact information mailed to pt home address. Addendum: 01/31/19 at [address] Amended: Links added.
--- NOTE | 2019-01-31 12:30 | NUR ---
PAGER ID: [phone] MESSAGE: [id number] James Tran Potassium 3.1 today, patient does not have potassium replacement orders, thank you Luz MAYEN, [phone]
[2019-01-31] MEDS: clopidogrel 75mg tablet PO SCH (12:43)
[2019-01-31] MEDS: aspirin 81mg tablet.DR PO SCH (12:46)
[2019-01-31] MEDS: enoxaparin 40mg/0.4ml syringe SQ SCH ×3 (12:49→20:12)
[2019-01-31] MEDS: enoxaparin 30mg/0.3ml syringe SUBCUT SCH ×2 (12:49→20:18)
[2019-01-31] MEDS: morphine 2 MG/ML inj. syringe IV PRN ×2 (13:04→19:12)
[2019-01-31] MEDS: polyethylene glycol 3350 17gm powd pack PO SCH (13:43)
[2019-01-31] MEDS: MULTIVIT-MIN/FERROUS GLUCONATE 9 MG/15 ML LIQUID PO SCH (13:44)
--- NOTE | 2019-01-31 14:22 | NUR ---
there is a clot clogging the drain tube, notified Dr. Morrell, he ordered to have the line flushed with 10ml of NS, flush was attempted but unable to remove clot/clog. Reattempted to contact Dr. Morrell, went to voicemail and mailbox is full. Will reattempt to notify.
--- NOTE | 2019-01-31 14:31 | NUR ---
spoke with IR, and informed them of the drain issue and being unable to contact Dr. Morrell, they said they will attempt to contact him and have him call with orders.
[2019-01-31 14:32] LABS: BASOPHILS % (AUTO) 0 % (0-1); EOSINOPHILS % (AUTO) 0 % (0-6); HEMATOCRIT 44.1 % (42.0-52.0); HEMOGLOBIN 14.4 g/dl (14.0-17.9); LYMPHOCYTES # (AUTO) 0.9 X10'3 (1.1-4.8); LYMPHOCYTES % (AUTO) 4.1 % (21-51); MEAN CORPUSCULAR HEMOGLOBIN 28.8 PG (27.0-31.0); MEAN CORPUSCULAR HGB CONC 32.7 g/dL (33.0-36.5); MEAN CORPUSCULAR VOLUME 88.1 FL (78-98); MEAN PLATELET VOLUME 9.4 FL (7.4-10.4); MONOCYTES # (AUTO) 2.6 X10'3 (0-0.9); MONOCYTES % (AUTO) 11.5 % (2-12); NEUTROPHILS # (AUTO) 19.1 X10'3 (1.8-7.7); NEUTROPHILS % (AUTO) 84.4 % (42-75); PLATELET COUNT 253 X10'3 (140-440); RED CELL DISTRIBUTION WIDTH 14.6 % (11.5-14.5); WHITE BLOOD COUNT 22.7 X10'3 (4.5-11.0)
--- NOTE | 2019-01-31 15:09 | NUR ---
Dr. Morrell came to patient bedside and was able to flush the line and remove the clot, drain working well at this time.
--- NOTE | 2019-01-31 16:39 | NUR ---
PAGER ID: [phone] MESSAGE: FAHEEM Carlos ext [phone], [phone], Marc, daughter says she does not think he needs voltaren gel, will not bring from home, please DC medication
[2019-01-31] MEDS ORDERED: potassium Cl 20 mEq SR tablet PO PRN (16:45)
[2019-01-31] MEDS ORDERED: magnesium Cl slow-release 64mg tablet PO PRN (16:45)
[2019-01-31] MEDS ORDERED: magnesium 4gm in 100ml NS 100 ML IV PRN (16:45)
[2019-01-31] MEDS: potassium Cl 20 mEq SR tablet PO PRN ×2 (17:19→21:27)
--- NOTE | 2019-01-31 18:38 | NUR ---
Orientee documentation: I have reviewed and agree with all interventions, assessments performed and documented by FAHEEM Hernandez.
--- NOTE | 2019-01-31 18:39 | NUR ---
Patient in room PCU 3022. I have received report from FAHEEM Carlos and had the opportunity to ask questions and assume patient care. Pt is sleepy with no sign of distress. is staying with him tonight. Will continue to monitor
--- NOTE | 2019-01-31 18:39 | NUR ---
Problems reprioritized. Patient report given, questions answered & plan of care reviewed with FAHEEM Escobar. Patient currently resting in bed, at bedside, bed locked and low, call light in reach, stable at [facility] change
[2019-01-31] MEDS: gabapentin 100mg capsule PO SCH (20:07)
[2019-01-31] MEDS: lactobacillus rhamnosus 10,000 MMU CELLS/CAPSULE PO SCH (20:08)
[2019-01-31] MEDS: atorvastatin 10mg tablet PO SCH (20:08)
[2019-01-31] MEDS: insulin glargine (Lantus) pen - multi-dose SQ SCH (21:43)
[2019-02-01] VITALS (7 sets, daily range): BP systolic 82–134; BP diastolic 45–76
[2019-02-01] MEDS: potassium Cl 20 mEq SR tablet PO PRN (01:07)
--- NOTE | 2019-02-01 03:00 | NUR ---
Rapid Response A rapid response was called on this patient. On arrival to bedside, the patient's blood presure was 64/37 automatic and keep going down. Per protocol administered NS bolus. Called Dr. Magallanes and was advised to start a 1,000 NS at 999 ml/hr. Pt's blood sugar was 90. Interventions: Per Dr. Magallanes: NS 1000 at 999ml/hr, hold beta carl. order CT Head Rapid response outcome: Pt was taken to get the CT Head. Upon return I took his BP 101/46, SPO2 is 98%. He is in 3L of oxygen via NC. Pt shows no sign of distress. Will continue to monitor
[2019-02-01] MEDS: piperacillin/tazo 4.5gm/100ml 100 ML IV SCH ×3 (04:13→20:01)
[2019-02-01] MEDS: normal saline 1000ml 1,000 ML IV SCH ×2 (04:14→20:02)
--- NOTE | 2019-02-01 06:00 | NUR ---
Patient in room PCU 3022. I have received report from FAHEEM Escobar and had the opportunity to ask questions and assume patient care. Patient is unresponsive to anything except painful stimuli. Patient started gurgling during report, suction was set up and patient's oropharynx suctioned with a yankhauer, gag reflex intact, but no eye opening, orange thick sputum suctioned, suspect aspiration, Dr. Magallanes called and stated to sit patient up a bit (patient is currently in semi-fowlers) and that his lack of response is likely related to medications but he does not need ICU at this time. fluids running at 50ml/hr per order, VSS, checked sugar: BG 107, will continue to monitor.
[2019-02-01 06:01] LABS: BASOPHILS % (AUTO) 0.1 % (0-1); EOSINOPHILS % (AUTO) 0 % (0-6); HEMATOCRIT 33.5 % (42.0-52.0); HEMOGLOBIN 11.1 g/dl (14.0-17.9); LYMPHOCYTES # (AUTO) 1.4 X10'3 (1.1-4.8); LYMPHOCYTES % (AUTO) 8.8 % (21-51); MEAN CORPUSCULAR HEMOGLOBIN 29.1 PG (27.0-31.0); MEAN CORPUSCULAR HGB CONC 33.1 g/dL (33.0-36.5); MEAN CORPUSCULAR VOLUME 87.9 FL (78-98); MEAN PLATELET VOLUME 9.4 FL (7.4-10.4); MONOCYTES # (AUTO) 2.2 X10'3 (0-0.9); MONOCYTES % (AUTO) 13.6 % (2-12); NEUTROPHILS # (AUTO) 12.6 X10'3 (1.8-7.7); NEUTROPHILS % (AUTO) 77.5 % (42-75); PLATELET COUNT 205 X10'3 (140-440); RED BLOOD COUNT 3.82 X10'6 (4.70-6.10); RED CELL DISTRIBUTION WIDTH 14.4 % (11.5-14.5); WHITE BLOOD COUNT 16.3 X10'3 (4.5-11.0)
--- NOTE | 2019-02-01 06:10 | NUR ---
Problems reprioritized. Patient report given, questions answered & plan of care reviewed with FAHEEM Carlos. Patient's blood pressure is stable, 3L of oxygen via NC, pt still sleeping.
--- NOTE | 2019-02-01 06:45 | NUR ---
Send message to pharmacy last night for home med Diflofenac Sodium (voltaren) gel
--- NOTE | 2019-02-01 07:01 | NUR ---
Patient in room [place] [id number]. I have received report from Jyotsna MAYEN and had the opportunity to ask questions and assume patient care. Addendum: 02/01/19 at 0733 by Abilio VELOZ [facility] Patient in room [place] [address]. I have received report from Breanna MAYEN and had the opportunity to ask questions and assume patient care.
[2019-02-01 07:08] LABS: ALBUMIN 1.6 G/DL (3.4-5.0); ANION GAP 12 (8-16); BLOOD UREA NITROGEN 32 MG/DL (7-18); BUN/CREATININE RATIO 17.8 (5.4-32.0); CALCIUM 8.4 MG/DL (8.5-10.1); CHLORIDE 109 MMOL/L (99-107); GLUCOSE 80 MG/DL (70-104); POTASSIUM 3.4 MMOL/L (3.5-5.1); SODIUM 141 MMOL/L (135-145); TOTAL CARBON DIOXIDE 20.4 MMOL/L (24-32); eGFR 36 ML/MIN
--- NOTE | 2019-02-01 07:12 | NUR ---
PAGER ID: [phone] MESSAGE: FAHEEM Carlos ext [phone], Marc, Patient is unresponsive this morning, rapid was called last night d/t low BP, head CT negative, BG 107, VSS at this time, patient may have aspirated, CXR?, more labs? please advise.
[2019-02-01] MEDS ORDERED: naloxone 0.4 mg/ml inj ONE ×2 (07:44→09:06)
[2019-02-01] MEDS: polyethylene glycol 3350 17gm powd pack PO SCH (08:00)
[2019-02-01] MEDS ORDERED: RESVERATROL PO SCH (08:00)
[2019-02-01] MEDS: vitamin D (cholecalciferol) 1,000 unit tablet PO SCH (08:00)
[2019-02-01] MEDS: MULTIVIT-MIN/FERROUS GLUCONATE 9 MG/15 ML LIQUID PO SCH (08:00)
[2019-02-01] MEDS: lactobacillus rhamnosus 10,000 MMU CELLS/CAPSULE PO SCH ×2 (08:00→20:00)
[2019-02-01] MEDS ORDERED: IRON 65 MG PO SCH (08:00)
[2019-02-01] MEDS: pantoprazole 40mg Tablet.DR PO SCH (08:00)
[2019-02-01] MEDS: levoTHYROXINE 75mcg tablet PO SCH (08:00)
[2019-02-01] MEDS ORDERED: GRAPE SKIN EXTRACT PO SCH (08:00)
[2019-02-01] MEDS: clopidogrel 75mg tablet PO SCH (08:00)
[2019-02-01] MEDS ORDERED: [UNRECOGNIZED DRUG - REMARK] PO SCH (08:00)
[2019-02-01] MEDS: cyanocobalamin 500mcg tablet PO SCH (08:00)
[2019-02-01] MEDS: aspirin 81mg tablet.DR PO SCH (08:30)
[2019-02-01 08:53] LABS: TOTAL CELLS COUNTED 100
[2019-02-01 08:54] LABS: ANISOCYTOSIS FEW; PLATELET ESTIMATE NORMAL; POIKILOCYTOSIS FEW; TOXIC GRANULATION 2+
--- NOTE | 2019-02-01 09:00 | NUR ---
Dr Loco at bedside, ordered another 0.4mg narcan, if no response then we will move to brain MRI and possibly EGD
--- NOTE | 2019-02-01 09:52 | NUR ---
PAGER ID: [phone] MESSAGE: FAHEEM Carlos, ext [phone], Marc, patient still unresponsive after 0.4mg Narcan, did you want contrast or no contrast with MRI?
[2019-02-01 10:36] LABS: ABG BASE EXCESS -3.9 mmol/L (-2.0-3.0); ABG HCO3 19.2 mmol/L (22.0-26.0); ABG OXYGEN SATURATION 93.6 % (95-98); ABG PCO2 (T) 29.5 mmHg (35.0-45.0); ABG PH (T) 7.432 (7.350-7.450); ABG PO2 (T) 68.9 mmHg (83-108); ALLEN'S TEST Positive; FCOHb 0.3 % (0.5-1.5); FLOW 3 L/min; FMetHb 0.1 % (0.3-1.12); FO2Hb 93.2 % (94-100); TOTAL HEMOGLOBIN 12.4 G/dl (14.0-17.9)
[2019-02-01] MEDS: enoxaparin 30mg/0.3ml syringe SUBCUT SCH (10:57)
--- NOTE | 2019-02-01 11:48 | NUR ---
Student documentation: I have reviewed interventions, assessments performed and documented by Patricia MÉNDEZ [facility].
--- NOTE | 2019-02-01 12:00 | NUR ---
Problems reprioritized. Patient report given, questions answered & plan of care reviewed with Breanna MAYEN.
--- NOTE | 2019-02-01 12:39 | NUR ---
PAGER ID: [phone] MESSAGE: BLADDER SCAN SHOWED [phone] ML FOR 3022 SHANNON KHAN
[2019-02-01 12:46] LABS: ALANINE AMINOTRANSFERASE 91 U/L (12-78); ALBUMIN 1.7 G/DL (3.4-5.0); ALBUMIN/GLOBULIN RATIO 0.4 (1.1-1.5); ALKALINE PHOSPHATASE 97 IU/L (46-116); ASPARTATE AMINO TRANSFERASE 93 U/L (10-37); BILIRUBIN,DIRECT 0.4 MG/DL (0-0.3); BILIRUBIN,TOTAL 0.6 MG/DL (0.1-1.0); TOTAL PROTEIN 5.6 G/DL (6.4-8.2)
[2019-02-01 13:03] LABS: TROPONIN I 5.84 NG/ML (0.0-0.05)
--- NOTE | 2019-02-01 18:00 | NUR ---
Patient in room PCU 3022. I have received report from FAHEEM Carlos and had the opportunity to ask questions and assume patient care.
--- NOTE | 2019-02-01 18:05 | NUR ---
Patient in room PCU 3022. I have received report from Breanna Vargas RN and had the opportunity to ask questions and assume patient care.
--- NOTE | 2019-02-01 18:10 | NUR ---
Problems reprioritized. Patient report given, questions answered & plan of care reviewed with FAHEEM Masterson. Patient currently resting in bed, bed locked and low, at bedside, vital signs stable at this time.
[2019-02-01] MEDS ORDERED: enoxaparin 30mg/0.3ml syringe SUBCUT SCH (20:00)
[2019-02-01] MEDS: potassium CL 10mEq/100ml bag 100 ML IV PRN ×2 (20:02→22:49)
[2019-02-01] MEDS: insulin glargine (Lantus) pen - multi-dose SQ SCH (21:00)
[2019-02-01] MEDS: gabapentin 100mg capsule PO SCH (21:00)
[2019-02-01] MEDS: atorvastatin 10mg tablet PO SCH (21:00)
[2019-02-02] VITALS (13 sets, daily range): BP systolic 103–165; BP diastolic 49–83
--- NOTE | 2019-02-02 | NUR ---
Tao beckwith per order critically ill I and O. Addendum: 02/02/19 at 0114 by Zaina Hernandez RN Amended: Links added.
[2019-02-02] MEDS: potassium CL 10mEq/100ml bag 100 ML IV PRN ×2 (00:51→02:47)
[2019-02-02] MEDS: piperacillin/tazo 4.5gm/100ml 100 ML IV SCH ×3 (02:46→19:31)
--- NOTE | 2019-02-02 06:00 | NUR ---
I have reviewed and agree with all of Zaina Partida's charting.
--- NOTE | 2019-02-02 06:05 | NUR ---
Problems reprioritized. Patient report given, questions answered & plan of care reviewed with Matt MAYEN.
--- NOTE | 2019-02-02 06:05 | NUR ---
Problems reprioritized. Patient report given, questions answered & plan of care reviewed with FAHEEM Gutierrez.
--- NOTE | 2019-02-02 06:28 | NUR ---
Patient in room PCU 3022. I have received report from FAHEEM Masterson and had the opportunity to ask questions and assume patient care.
[2019-02-02 07:41] LABS: ALBUMIN 1.6 G/DL (3.4-5.0); ANION GAP 12 (8-16); BLOOD UREA NITROGEN 41 MG/DL (7-18); CALCIUM 8.5 MG/DL (8.5-10.1); CHLORIDE 112 MMOL/L (99-107); CHOL/HDL RATIO 5.5 (0.00-4.99); CHOLESTEROL 82 MG/DL (0-200); CREATININE 1.64 MG/DL (0.60-1.10); GLUCOSE 174 MG/DL (70-104); HDL CHOLESTEROL 15 MG/DL (35-60); LDL CHOLESTEROL 45 MG/DL (50-100); MAGNESIUM 2.1 MG/DL (1.5-2.4); POTASSIUM 3.8 MMOL/L (3.5-5.1); SODIUM 145 MMOL/L (135-145); TOTAL CARBON DIOXIDE 20.8 MMOL/L (24-32); TRIGLYCERIDES 83 MG/DL (20-135); eGFR 40 ML/MIN
[2019-02-02] MEDS: levoTHYROXINE 75mcg tablet PO SCH (08:00)
[2019-02-02] MEDS: enoxaparin 40mg/0.4ml syringe SQ SCH (08:41)
[2019-02-02] MEDS: enoxaparin 30mg/0.3ml syringe SUBCUT SCH (08:42)
[2019-02-02 08:52] LABS: BASOPHILS % (AUTO) 0.1 % (0-1); EOSINOPHILS % (AUTO) 0 % (0-6); HEMATOCRIT 33.4 % (42.0-52.0); LYMPHOCYTES # (AUTO) 1.1 X10'3 (1.1-4.8); MEAN CORPUSCULAR HEMOGLOBIN 28.5 PG (27.0-31.0); MEAN CORPUSCULAR HGB CONC 32.9 g/dL (33.0-36.5); MEAN CORPUSCULAR VOLUME 86.6 FL (78-98); MEAN PLATELET VOLUME 8.6 FL (7.4-10.4); MONOCYTES # (AUTO) 1.3 X10'3 (0-0.9); MONOCYTES % (AUTO) 8.4 % (2-12); NEUTROPHILS # (AUTO) 13.4 X10'3 (1.8-7.7); NEUTROPHILS % (AUTO) 84.5 % (42-75); PLATELET COUNT 277 X10'3 (140-440); RED BLOOD COUNT 3.85 X10'6 (4.70-6.10); RED CELL DISTRIBUTION WIDTH 14.4 % (11.5-14.5); WHITE BLOOD COUNT 15.9 X10'3 (4.5-11.0)
[2019-02-02] MEDS: insulin Lispro (HumaLOG) vial - multi-dose SQ SCH ×3 (09:28→22:02)
--- NOTE | 2019-02-02 11:57 | NUR ---
PAGER ID: [phone] MESSAGE: [phone] James Tran: Dr Escamilla was recommedning a cardio consult for patient. FAHEEM Gutierrez Ext [phone]
--- NOTE | 2019-02-02 12:36 | NUR ---
PAGER ID: [phone] MESSAGE: RE: ROOM 3022 James rTan Family wants to use own insulin protocol. Would this be ok with you? Diaz MAYEN [phone]
--- NOTE | 2019-02-02 12:44 | NUR ---
Dr. Miles does not agree for pt to use home insulin program. Pt's family informed.
[2019-02-02] MEDS: clopidogrel 75mg tablet PO SCH (13:34)
[2019-02-02] MEDS: cyanocobalamin 500mcg tablet PO SCH (13:34)
[2019-02-02] MEDS: losartan 50mg tablet PO SCH (13:34)
[2019-02-02] MEDS: MULTIVIT-MIN/FERROUS GLUCONATE 9 MG/15 ML LIQUID PO SCH (13:35)
[2019-02-02] MEDS: polyethylene glycol 3350 17gm powd pack PO SCH (13:35)
[2019-02-02] MEDS: pantoprazole 40mg Tablet.DR PO SCH (13:35)
[2019-02-02] MEDS: vitamin D (cholecalciferol) 1,000 unit tablet PO SCH (13:35)
[2019-02-02] MEDS: lactobacillus rhamnosus 10,000 MMU CELLS/CAPSULE PO SCH ×2 (13:41→22:10)
[2019-02-02] MEDS: aspirin 81mg tablet.DR PO SCH (13:41)
--- NOTE | 2019-02-02 16:36 | NUR ---
PAGER ID: [phone] MESSAGE: [phone] James Tran: Dr Patel the neurologist from the tele med was wanting you to give him a call at [phone]. FAHEEM Gutierrez Ext [phone]
--- NOTE | 2019-02-02 16:52 | NUR ---
PRESSURE ULCER EDUCATION: DEFINITION: A pressure ulcer is an area of skin that breaks down when you stay in one position too long. The constant pressure against the skin reduces the blood flow to that area and the affected tissue dies. CAUSES: "Being bedridden or in a wheelchair "Fragile skin "Having a chronic condition, such as diabetes or vascular disease "Inability to move certain parts of your body without assistance "Older age "Incontinence of urine or stool SYMPTOMS: "A reddened area that DOES NOT turn white when pressed on - this can be the beginning of a pressure ulcer "A blister, deep sore or a crater - these can be advanced pressure ulcers FIRST AID: "Relieve the pressure on this area "Keep the area clean and dry "Call your primary doctor if you see any of the above symptoms "DO NOT massage the area "DO NOT use a donut shaped or ring shaped pillow- these actually interfere with the blood flow and cause complications PREVENTION: "Check for pressure ulcers everyday "Change position at least every two hours to relieve pressure "Use items that help relieve pressure- pillows, sheepskin, foam padding, and powders. "Keep skin clean and dry "Eat healthy well balanced meals "Exercise daily IF YOU SEE ANY OF THESE SYMPTOMS WHILE IN THE HOSPITAL - TELL YOUR NURSE IMMEDIATELY. IF YOU SEE ANY OF THESE SYMPTOMS WHILE AT HOME OR HAVE ANY QUESTIONS OR CONCERNS ABOUT PRESSURE ULCERS - CALL YOUR PRIMARY DOCTOR IMMEDIATELY. Addendum: 02/02/19 at 1652 by Stan King RN Amended: Links added.
--- NOTE | 2019-02-02 18:05 | NUR ---
Patient in room PCU 3022. I have received report from FAHEEM Gutierrez and had the opportunity to ask questions and assume patient care.
--- NOTE | 2019-02-02 18:24 | NUR ---
Problems reprioritized. Patient report given, questions answered & plan of care reviewed with Zelalem RN.
--- NOTE | 2019-02-02 18:32 | NUR ---
Patient in room PCU 3022. I have received report from Matt MAYEN and had the opportunity to ask questions and assume patient care.
[2019-02-02] MEDS: insulin glargine (Lantus) pen - multi-dose SQ SCH (21:00)
[2019-02-02] MEDS: gabapentin 100mg capsule PO SCH (21:00)
--- NOTE | 2019-02-02 21:00 | NUR ---
refused Lantus and Neurontin. Pt unable to make decisions for self.
[2019-02-02] MEDS: atorvastatin 10mg tablet PO SCH (22:02)
--- NOTE | 2019-02-02 23:53 | NUR ---
Family states baseline left arm is unable to raise past shoulder level due to previous shoulder/arm injury. Baseline pt unable to track with just eyes, follows with head movement. Addendum: 02/02/19 at 2355 by Zaina Hernandez RN Amended: Links added.
[2019-02-03 03:00] VITALS: BP 160/70
[2019-02-03] MEDS: piperacillin/tazo 4.5gm/100ml 100 ML IV SCH ×3 (03:11→19:32)
[2019-02-03] MEDS: ondansetron/PF 4mg/2ml inj IV PRN (03:16)
[2019-02-03] MEDS: normal saline 1000ml 1,000 ML IV SCH (03:22)
--- NOTE | 2019-02-03 05:25 | NUR ---
I have reviewed Zaina Patrida's charting and agree.
--- NOTE | 2019-02-03 05:38 | NUR ---
NOTIFIED called Dr. Loco, pt has new onset blood in urine (Burger), relayed that pt is on lovenox and plavix. asked if we should run new coag studies. per . hold lovenox declined further coag studies
[2019-02-03 06:00] VITALS: BP 160/68
[2019-02-03 06:19] LABS: BASOPHILS % (AUTO) 0.1 % (0-1); EOSINOPHILS % (AUTO) 0 % (0-6); HEMATOCRIT 33.2 % (42.0-52.0); HEMOGLOBIN 11.2 g/dl (14.0-17.9); LYMPHOCYTES # (AUTO) 1.3 X10'3 (1.1-4.8); LYMPHOCYTES % (AUTO) 8.6 % (21-51); MEAN CORPUSCULAR HEMOGLOBIN 29.1 PG (27.0-31.0); MEAN CORPUSCULAR HGB CONC 33.7 g/dL (33.0-36.5); MEAN CORPUSCULAR VOLUME 86.6 FL (78-98); MEAN PLATELET VOLUME 8.6 FL (7.4-10.4); MONOCYTES # (AUTO) 1.4 X10'3 (0-0.9); NEUTROPHILS # (AUTO) 12.5 X10'3 (1.8-7.7); NEUTROPHILS % (AUTO) 82.3 % (42-75); PLATELET COUNT 296 X10'3 (140-440); RED BLOOD COUNT 3.83 X10'6 (4.70-6.10); RED CELL DISTRIBUTION WIDTH 14.6 % (11.5-14.5); WHITE BLOOD COUNT 15.2 X10'3 (4.5-11.0)
[2019-02-03 06:20] LABS: ALBUMIN 1.7 G/DL (3.4-5.0); ANION GAP 13 (8-16); BLOOD UREA NITROGEN 28 MG/DL (7-18); BUN/CREATININE RATIO 21.7 (5.4-32.0); CALCIUM 9.1 MG/DL (8.5-10.1); CHLORIDE 112 MMOL/L (99-107); CREATININE 1.29 MG/DL (0.60-1.10); GLUCOSE 259 MG/DL (70-104); MAGNESIUM 1.9 MG/DL (1.5-2.4); SODIUM 148 MMOL/L (135-145); TOTAL CARBON DIOXIDE 23.4 MMOL/L (24-32); eGFR 53 ML/MIN
[2019-02-03 06:24] LABS: POTASSIUM 2.4 MMOL/L (3.5-5.1)
--- NOTE | 2019-02-03 06:29 | NUR ---
Problems reprioritized. Patient report given, questions answered & plan of care reviewed with FAHEEM Gutierrez.
--- NOTE | 2019-02-03 06:30 | NUR ---
PAGER ID: [phone] MESSAGE: YOLIE 3022 James Tran: Tasha 2.4, Will replace per protocol. FAHEEM Gutierrez Ext [phone]
--- NOTE | 2019-02-03 06:40 | NUR ---
Gave Tuan Barba a notification of the new development of hematuria in the troy catheter and patient's anticoagulant and blood thinner regimen with stoke history.
[2019-02-03] MEDS: potassium CL 10mEq/100ml bag 100 ML IV PRN ×8 (06:49→21:24)
--- NOTE | 2019-02-03 06:51 | NUR ---
Problems reprioritized. Patient report given, questions answered & plan of care reviewed with Matt MAYEN.
--- NOTE | 2019-02-03 06:59 | NUR ---
Patient in room PCU 3022. I have received report from FAHEEM Masterson and had the opportunity to ask questions and assume patient care.
[2019-02-03] MEDS: enoxaparin 30mg/0.3ml syringe SUBCUT SCH (07:03)
[2019-02-03] MEDS: enoxaparin 40mg/0.4ml syringe SQ SCH (07:03)
[2019-02-03] MEDS: polyethylene glycol 3350 17gm powd pack PO SCH (07:23)
[2019-02-03] MEDS: levoTHYROXINE 75mcg tablet PO SCH (07:27)
[2019-02-03] MEDS ORDERED: potassium CL 20mEq in D5-1/2NS 1,000 ML IV SCH (08:30)
--- NOTE | 2019-02-03 08:41 | NUR ---
PAGER ID: [phone] MESSAGE: [phone] James Tran: The was wondering if you could come and talk with her, she has some concerns with the hematuria. FAHEEM Gutierrez Ext [phone] Addendum: 02/03/19 at 1355 by Matt Chatman RN At 0
--- NOTE | 2019-02-03 08:43 | NUR ---
PAGER ID: [phone] MESSAGE: [phone] James Marc: The Plavix is still okay to give? just wanted to make sure? FAHEEM Gutierrez Ext [phone]
[2019-02-03] MEDS: clopidogrel 75mg tablet PO SCH (08:49)
[2019-02-03] MEDS: lactobacillus rhamnosus 10,000 MMU CELLS/CAPSULE PO SCH ×2 (08:49→21:23)
[2019-02-03] MEDS: losartan 50mg tablet PO SCH (08:51)
--- NOTE | 2019-02-03 09:00 | NUR ---
Dr Miles came into assess the troy. Dr Miles gave instructions to inflate the Troy balloon due to leak around the troy and to irrigate the troy for possible clots. Addendum: 02/03/19 at 1432 by Matt Chatman RN Per Dr. Miles 2ml of saline was added to the ballon in the troy cath and the cath was also irrigated per her recommendation.
--- NOTE | 2019-02-03 09:21 | NUR ---
DR HOUGH INFORMED THAT F/C WAS LEAKING AROUND INSERTION SITE. HEMATURIA TO URINE COLLECTION BAG. I WAS ASKED BY DR HOUGH TO IRRIGATE F/C AND REPLACE COLLECTION BAG. I BLADDER SCANNED BLADDER AND FOUND 450 CC IN BLADDER. I THEN DISCONNECTED OLD BAG AND IRRIGATED COUDE WITH 150 CC STERIL WATER. SCANT FLUID LEAKING OUT AROUND INSERTION SITE. PT EXPRESSED DISCOMFORT " ALL OVER MY BODY". NEW COLLECTION BAG ATTACHED TO COUDE. DR HOUGH INFORMED OF EVENTS. SHE WILL CONTACT DR MCKINNEY. HIS LINE IS BUSY RIGHT NOW. SHE WILL CONTINUE TO ATTEMPT TO CONTACT HIS. WILL CONTINUE TO MONITOR. PT PAIN TREATED WITH TYLENOL. Addendum: 02/03/19 at 0931 by Cami Alvarez RN Amended: Links added.
[2019-02-03] MEDS: acetaminophen 325mg tablet PO PRN (09:24)
[2019-02-03] MEDS: insulin Lispro (HumaLOG) vial - multi-dose SQ SCH ×3 (10:48→19:45)
--- NOTE | 2019-02-03 10:49 | NUR ---
Family not comfort with insulin due to patient no eating. Addendum: 02/03/19 at 1057 by Matt Chatman RN Family also educated on our protocol, they still want to hold off on the insulin for now.
[2019-02-03 11:00] VITALS: BP 118/73
--- NOTE | 2019-02-03 11:29 | NUR ---
Pt with low John of 11. Per physical assessment pt with no edema or wounds although noted that pt with poor PO intake documented with 0% all of yesterday, pending documentation of PO intake today. notified of RD recommendation for Glucerna TID however MD declined ONS at this time. Will continue to follow. Addendum: 02/03/19 at [address] Amended: Links added.
--- NOTE | 2019-02-03 12:36 | NUR ---
per protocol would get 13 units, family refused the 13 units said to get 6 units, family has been educated numerous times how our insulin protocol works.
[2019-02-03] MEDS: dextrose 5%-1/2 normal saline 1,000 ML IV SCH ×2 (12:40→23:27)
--- NOTE | 2019-02-03 14:54 | NUR ---
PAGER ID: [phone] MESSAGE: RM [phone] James Cordova came back at 2.7, So I resume protocol. (Per protocol her still has 4 bags left of K to run.) FAHEEM Gutierrez Ext [phone]
[2019-02-03 15:00] VITALS: BP 158/78
[2019-02-03] MEDS: HYDROcodone/acetaminophen 5mg/325mg tablet PO PRN (16:01)
[2019-02-03] MEDS ORDERED: magnesium 4gm in 100ml NS 100 ML IV PRN (17:15)
--- NOTE | 2019-02-03 17:25 | NUR ---
Running K bag 10/28.
--- NOTE | 2019-02-03 18:20 | NUR ---
Problems reprioritized. Patient report given, questions answered & plan of care reviewed with FAHEEM Garcia.
[2019-02-03 19:00] VITALS: BP 163/70
--- NOTE | 2019-02-03 19:30 | NUR ---
Called to patient's room by due to continued dex bleeding into the troy and leakage around the catheter. reports that patient felt the urge to void so he tried and proceeded to spray urine from around the catheter. Patient's bedding saturated with bloody urine. Bladder scan showed over 450mL of urine in the bladder. Attempted to reposition and flush troy at the recommendation of Dr. Leigh. Flushing yielded multiple small blood clots and ospina red urine. Troy bag changed to allow close monitoring of output to ensure troy was continuing to be patent. Will continue to monitor
[2019-02-03] MEDS: gabapentin 100mg capsule PO SCH (21:23)
[2019-02-03] MEDS: atorvastatin 10mg tablet PO SCH (21:23)
[2019-02-03] MEDS: insulin glargine (Lantus) pen - multi-dose SQ SCH (21:58)
[2019-02-03 22:00] VITALS: BP 156/76
--- NOTE | 2019-02-03 22:15 | NUR ---
Called again to patient's to reassess troy because she felt he wasn't having enough output and she feared troy was once again clogged. Patient had approximately 100mL of ospina red urine in the bag and appeared to be draining. All bedding was dry. While I was in the room patient spontaneously voided and a significant amount of urine sprayed around the catheter leaving the patient's bedding wet. Spoke over options with and asked if she would be okay with nursing attempting to replace the troy. She stated that it would be the best option because it was obvious the other troy wasn't working any longer. When previous troy was d/c'd there was a visible clot lodged in the tip of the catheter. Placed an 18French coude tipped catheter using sterile technique with no difficultly. 150mL of dex red urine immediately drained into catheter bag and patient reported immediately relief of all discomfort. Will continue to monitor.
[2019-02-04 01:34] LABS: ALBUMIN 1.6 G/DL (3.4-5.0); ANION GAP 8 (8-16); BLOOD UREA NITROGEN 21 MG/DL (7-18); BUN/CREATININE RATIO 15.9 (5.4-32.0); CALCIUM 8.5 MG/DL (8.5-10.1); CHLORIDE 110 MMOL/L (99-107); CREATININE 1.32 MG/DL (0.60-1.10); GLUCOSE 293 MG/DL (70-104); MAGNESIUM 1.7 MG/DL (1.5-2.4); SODIUM 146 MMOL/L (135-145); TOTAL CARBON DIOXIDE 28.3 MMOL/L (24-32); eGFR 52 ML/MIN
[2019-02-04 01:37] LABS: BASOPHILS % (AUTO) 0 % (0-1); EOSINOPHILS % (AUTO) 0.2 % (0-6); HEMATOCRIT 31.4 % (42.0-52.0); HEMOGLOBIN 10.5 g/dl (14.0-17.9); LYMPHOCYTES # (AUTO) 1.6 X10'3 (1.1-4.8); LYMPHOCYTES % (AUTO) 10.5 % (21-51); MEAN CORPUSCULAR HEMOGLOBIN 28.7 PG (27.0-31.0); MEAN CORPUSCULAR HGB CONC 33.3 g/dL (33.0-36.5); MEAN CORPUSCULAR VOLUME 86.2 FL (78-98); MEAN PLATELET VOLUME 8.5 FL (7.4-10.4); MONOCYTES # (AUTO) 1.6 X10'3 (0-0.9); MONOCYTES % (AUTO) 10.2 % (2-12); NEUTROPHILS # (AUTO) 12.1 X10'3 (1.8-7.7); NEUTROPHILS % (AUTO) 79.1 % (42-75); PLATELET COUNT 294 X10'3 (140-440); RED BLOOD COUNT 3.65 X10'6 (4.70-6.10); RED CELL DISTRIBUTION WIDTH 14.4 % (11.5-14.5); WHITE BLOOD COUNT 15.4 X10'3 (4.5-11.0)
[2019-02-04] MEDS: potassium CL 10mEq/100ml bag 100 ML IV PRN ×6 (01:39→09:22)
[2019-02-04 02:00] VITALS: BP 170/70
[2019-02-04] MEDS: piperacillin/tazo 4.5gm/100ml 100 ML IV SCH ×3 (02:57→19:22)
--- NOTE | 2019-02-04 06:35 | NUR ---
Problems reprioritized. Patient report given, questions answered & plan of care reviewed with Felicitas MAYEN.
--- NOTE | 2019-02-04 06:35 | NUR ---
Student Medication Administration: For this medication-pass time frame, all medication were reviewed, dispensed, administered and documented per hospital policy by Marylin MÉNDEZ. Student documentation: I have reviewed and agree with all interventions, assessments performed and documented by Marylin MÉNDEZ.
[2019-02-04 07:00] VITALS: BP 170/80
--- NOTE | 2019-02-04 07:12 | NUR ---
Patient in room PCU 3022. I have received report from FAHEEM Garcia and had the opportunity to ask questions and assume patient care.
--- NOTE | 2019-02-04 07:14 | NUR ---
Patient in room PCU 3022. I have received report from Radha MAYEN and had the opportunity to ask questions and assume patient care.
[2019-02-04 07:33] LABS: ANISOCYTOSIS 1+; MICROCYTOSIS 1+; PLATELET ESTIMATE NORMAL; TOTAL CELLS COUNTED 100
[2019-02-04] MEDS: losartan 50mg tablet PO SCH (08:14)
[2019-02-04] MEDS: clopidogrel 75mg tablet PO SCH (08:14)
[2019-02-04] MEDS: pantoprazole 40mg Tablet.DR PO SCH (08:14)
[2019-02-04] MEDS: lactobacillus rhamnosus 10,000 MMU CELLS/CAPSULE PO SCH ×2 (08:15→19:22)
[2019-02-04] MEDS: carVEDilol 3.125mg tablet PO SCH (08:15)
[2019-02-04] MEDS: levoTHYROXINE 75mcg tablet PO SCH (08:15)
[2019-02-04] MEDS: insulin Lispro (HumaLOG) vial - multi-dose SQ SCH ×3 (09:20→19:22)
[2019-02-04 11:00] VITALS: BP 165/80
--- NOTE | 2019-02-04 11:40 | NUR ---
Initial: Pt admit w/ CVA, NSTEMI, LENCHO, and uretheral stricture requiring catheter per MD note. Pt AOx2 advanced to pureed/thin/carb controlled w/ feeder for safety per TRACTOR TRAILER MECHANIC/MD. Pt 0% PO following first meal 100% past 4 days. AMOL d/w who agrees to Glucerna TIDWM given low PO; pending verification prior to sending on trays. Per MD note pt family reports will likely not eat pureed foods though cannot liberalize unless TRACTOR TRAILER MECHANIC/MD approves. LBM 02/03. Pt receiving MVI and electrolyte replacement per protocol. GLU 275 receiving prednisone on hyperglycemia protocol. Given 0% PO past 4 days, severe weakness, BLE +2 edema pt qualifies for severe malnutrition at this time; MD notified. Pt not appropriate for malnutrition/DM eds this admit. Will continue to monitor. Rec: 1. continue pureed/thin/carb controlled diet per MD/TRACTOR TRAILER MECHANIC; encourage PO 2. Glucerna TIDWM 3. weekly wts Addendum: 02/04/19 at [address] Amended: Links added.
--- NOTE | 2019-02-04 11:53 | NUR ---
Spoke with Dr. Conn. Recieved order for Potassium PO 20mEq X 1 to complete replacement. Recheck K in AM.
[2019-02-04] MEDS ORDERED: potassium Cl 20 mEq SR tablet PO ONE (11:55)
[2019-02-04] MEDS: dextrose 5%-1/2 normal saline 1,000 ML IV SCH ×2 (12:43→21:52)
[2019-02-04] MEDS: NUT.TX.GLUC.INTOLER,LAC-FR,SOY (GLUCERNA) 237 ML PO SCH ×2 (13:00→18:55)
[2019-02-04 14:07] LABS: CLARITY,URINE CLOUDY (Clear); COLOR,URINE RED (Yellow)
[2019-02-04 14:08] LABS: UA COLLECTION TYPE FOLEY CATH
[2019-02-04 14:13] LABS: BACTERIA,URINE FEW /HPF (Neg); MUCUS STRANDS NONE SEEN /LPF (Neg); RBC,URINE TNTC /HPF (0-2); SQUAMOUS EPITHELIAL CELL,UR NONE SEEN /LPF (FEW)
[2019-02-04 14:14] LABS: WBC CLUMPS,URINE FEW /HPF (NEGATIVE)
[2019-02-04 15:00] VITALS: BP 165/80
[2019-02-04] MEDS: acetaminophen 325mg tablet PO PRN (15:13)
--- NOTE | 2019-02-04 17:55 | NUR ---
pt had urine leaking around troy catheter. baloon deflated, catheter advanced a small amount, balloon reinflated and 250ml out of troy
[2019-02-04 18:30] VITALS: BP 165/80
--- NOTE | 2019-02-04 18:45 | NUR ---
Patient in room PCU 3022. I have received report from Felicitas MAYEN and had the opportunity to ask questions and assume patient care.
--- NOTE | 2019-02-04 18:46 | NUR ---
Patient in room PCU 3022. I have received report from Felicitas MAYEN and had the opportunity to ask questions and assume patient care.
--- NOTE | 2019-02-04 18:54 | NUR ---
Problems reprioritized. Patient report given, questions answered & plan of care reviewed with FAHEEM Da Silva.
[2019-02-04] MEDS: atorvastatin 10mg tablet PO SCH (20:41)
[2019-02-04] MEDS: gabapentin 100mg capsule PO SCH (20:43)
[2019-02-04] MEDS: insulin glargine (Lantus) pen - multi-dose SQ SCH (21:29)
[2019-02-04 23:00] VITALS: BP 170/60
--- NOTE | 2019-02-04 23:09 | NUR ---
PAGER ID: [phone] MESSAGE: Patient James Tran Rm 3020 BP is 170/60. He doesn't have any PRNs for blood pressure. Should we give him anything? Thank you! Rekha MAYEN ext. [phone]
[2019-02-05 03:00] VITALS: BP 160/50
[2019-02-05] MEDS: piperacillin/tazo 4.5gm/100ml 100 ML IV SCH ×3 (03:23→19:01)
[2019-02-05 05:19] LABS: MAGNESIUM 1.4 MG/DL (1.5-2.4)
[2019-02-05 05:46] LABS: POTASSIUM 3.2 MMOL/L (3.5-5.1)
[2019-02-05 06:00] VITALS: BP 123/70
--- NOTE | 2019-02-05 06:20 | NUR ---
Patient in room PCU 3022. I have received report from and had the opportunity to ask questions and assume patient care.
--- NOTE | 2019-02-05 06:48 | NUR ---
Problems reprioritized. Patient report given, questions answered & plan of care reviewed with Matty RN.
[2019-02-05] MEDS: dextrose 5%-1/2 normal saline 1,000 ML IV SCH ×3 (07:23→19:10)
--- NOTE | 2019-02-05 07:35 | NUR ---
PAGER ID: [phone] MESSAGE: DR. PUENTE, 3022/SHANNON, K+3.2 ONLY HAVE IV ORDERS. PO REPLACEMENT PLEASE? MG+ 1.2, need replacement orders? IS ASKING ABOUT AN EXTENDED PIV AND WANTING THE SURGEON TO SEE THEM. TC [id number]. TY
[2019-02-05] MEDS ORDERED: potassium Cl 20 mEq SR tablet PO PRN (07:45)
[2019-02-05] MEDS: carVEDilol 3.125mg tablet PO SCH (07:56)
[2019-02-05] MEDS: lactobacillus rhamnosus 10,000 MMU CELLS/CAPSULE PO SCH ×2 (07:58→19:01)
[2019-02-05] MEDS: losartan 50mg tablet PO SCH (07:58)
[2019-02-05] MEDS: pantoprazole 40mg Tablet.DR PO SCH (07:59)
[2019-02-05] MEDS: aspirin 81mg tablet.DR PO SCH (07:59)
[2019-02-05] MEDS: NUT.TX.GLUC.INTOLER,LAC-FR,SOY (GLUCERNA) 237 ML PO SCH ×3 (07:59→18:02)
[2019-02-05] MEDS: levoTHYROXINE 75mcg tablet PO SCH (08:00)
--- NOTE | 2019-02-05 08:00 | NUR ---
HAS GB DRAIN RUQ WITH SCANT AMT DARK DRAINAGE NOTED IN BULB. INSERTION SITE ASX.
[2019-02-05] MEDS: magnesium Cl slow-release 64mg tablet PO PRN ×2 (08:04→20:30)
[2019-02-05] MEDS: potassium Cl 20 mEq SR tablet PO PRN ×3 (08:04→16:23)
--- NOTE | 2019-02-05 08:31 | NUR ---
PAGED PICC:PLEASE CALL TC [id number] R/T [id number]. DR. PUENTE REQUESTING EXTENDED PIV. TC
[2019-02-05] MEDS: insulin Lispro (HumaLOG) vial - multi-dose SQ SCH ×3 (09:05→19:03)
[2019-02-05 09:10] LABS: BASOPHILS % (AUTO) 0.1 % (0-1); EOSINOPHILS # (AUTO) 0.4 X10'3 (0-0.9); EOSINOPHILS % (AUTO) 2.3 % (0-6); HEMOGLOBIN 10.2 g/dl (14.0-17.9); LYMPHOCYTES # (AUTO) 1.9 X10'3 (1.1-4.8); LYMPHOCYTES % (AUTO) 12.8 % (21-51); MEAN CORPUSCULAR HEMOGLOBIN 28.4 PG (27.0-31.0); MEAN CORPUSCULAR VOLUME 86.1 FL (78-98); MEAN PLATELET VOLUME 8.2 FL (7.4-10.4); MONOCYTES # (AUTO) 1.2 X10'3 (0-0.9); MONOCYTES % (AUTO) 8.2 % (2-12); NEUTROPHILS # (AUTO) 11.5 X10'3 (1.8-7.7); NEUTROPHILS % (AUTO) 76.6 % (42-75); PLATELET COUNT 286 X10'3 (140-440); RED CELL DISTRIBUTION WIDTH 14.3 % (11.5-14.5)
[2019-02-05 09:14] LABS: ALBUMIN 1.7 G/DL (3.4-5.0); ANION GAP 7 (8-16); BLOOD UREA NITROGEN 13 MG/DL (7-18); CALCIUM 7.8 MG/DL (8.5-10.1); CHLORIDE 103 MMOL/L (99-107); CREATININE 1.08 MG/DL (0.60-1.10); POTASSIUM 3.2 MMOL/L (3.5-5.1); SODIUM 137 MMOL/L (135-145); TOTAL CARBON DIOXIDE 26.8 MMOL/L (24-32); eGFR 65 ML/MIN
[2019-02-05 09:25] LABS: GLUCOSE 351 MG/DL (70-104)
[2019-02-05 11:00] VITALS: BP 112/70
[2019-02-05 15:00] VITALS: BP 124/76
--- NOTE | 2019-02-05 18:31 | NUR ---
NEW HIRE building tech: I have reviewed and agree with all interventions, assessments performed and documented by FAHEEM JUNIOR.
--- NOTE | 2019-02-05 18:31 | NUR ---
Problems reprioritized. Patient report given, questions answered & plan of care reviewed with FAHEEM DIAZ.
[2019-02-05 19:41] VITALS: BP 126/64
[2019-02-05] MEDS: gabapentin 100mg capsule PO SCH (20:30)
[2019-02-05] MEDS: atorvastatin 10mg tablet PO SCH (20:30)
[2019-02-05] MEDS: insulin glargine (Lantus) pen - multi-dose SQ SCH (20:48)
[2019-02-05 22:00] VITALS: BP 122/52
--- NOTE | 2019-02-05 23:21 | NUR ---
Patient in room PCU 3022. I have received report from Matty MAYEN and had the opportunity to ask questions and assume patient care.
[2019-02-06 02:00] VITALS: BP 146/58
[2019-02-06] MEDS: piperacillin/tazo 4.5gm/100ml 100 ML IV SCH ×2 (02:32→11:06)
--- NOTE | 2019-02-06 04:39 | NUR ---
Orientee documentation: I have reviewed and agree with all interventions, assessments performed and documented by Jenni MAYEN. [place] Medication Administration: For this medication-pass time frame, all medication were reviewed, dispensed, administered and documented per hospital policy by Jenni MAYEN.
[2019-02-06 04:59] LABS: BASOPHILS % (AUTO) 0.1 % (0-1); EOSINOPHILS # (AUTO) 0.5 X10'3 (0-0.9); EOSINOPHILS % (AUTO) 3.3 % (0-6); HEMATOCRIT 26.3 % (42.0-52.0); HEMOGLOBIN 8.6 g/dl (14.0-17.9); LYMPHOCYTES # (AUTO) 2.5 X10'3 (1.1-4.8); LYMPHOCYTES % (AUTO) 15.6 % (21-51); MEAN CORPUSCULAR HEMOGLOBIN 28.6 PG (27.0-31.0); MEAN CORPUSCULAR HGB CONC 32.7 g/dL (33.0-36.5); MEAN CORPUSCULAR VOLUME 87.4 FL (78-98); MEAN PLATELET VOLUME 8.3 FL (7.4-10.4); MONOCYTES # (AUTO) 1.4 X10'3 (0-0.9); MONOCYTES % (AUTO) 8.5 % (2-12); NEUTROPHILS # (AUTO) 11.6 X10'3 (1.8-7.7); NEUTROPHILS % (AUTO) 72.5 % (42-75); PLATELET COUNT 245 X10'3 (140-440); RED BLOOD COUNT 3.01 X10'6 (4.70-6.10); RED CELL DISTRIBUTION WIDTH 14.6 % (11.5-14.5)
[2019-02-06 05:12] LABS: ALBUMIN 1.4 G/DL (3.4-5.0); ANION GAP 6 (8-16); BLOOD UREA NITROGEN 10 MG/DL (7-18); BUN/CREATININE RATIO 8.8 (5.4-32.0); CALCIUM 7.4 MG/DL (8.5-10.1); CHLORIDE 105 MMOL/L (99-107); CREATININE 1.14 MG/DL (0.60-1.10); GLUCOSE 152 MG/DL (70-104); MAGNESIUM 1.2 MG/DL (1.5-2.4); POTASSIUM 3.1 MMOL/L (3.5-5.1); SODIUM 138 MMOL/L (135-145); TOTAL CARBON DIOXIDE 26.9 MMOL/L (24-32); eGFR 61 ML/MIN
[2019-02-06] MEDS: dextrose 5%-1/2 normal saline 1,000 ML IV SCH ×2 (05:18→15:32)
[2019-02-06 06:00] VITALS: BP 152/60
--- NOTE | 2019-02-06 06:11 | NUR ---
Patient in room PCU 3022. I have received report from Rekha MAYEN & Jenni MAYEN and had the opportunity to ask questions and assume patient care.
--- NOTE | 2019-02-06 06:11 | NUR ---
Problems reprioritized. Patient report given, questions answered & plan of care reviewed with Elsa MAYEN and Jaclyn MAYEN.
[2019-02-06 06:37] LABS: TOTAL CELLS COUNTED 100
[2019-02-06 06:38] LABS: PLATELET ESTIMATE NORMAL
[2019-02-06 06:39] LABS: HYPOCHROMASIA 1+; POIKILOCYTOSIS FEW
[2019-02-06] MEDS: pantoprazole 40mg Tablet.DR PO SCH (07:55)
[2019-02-06] MEDS: aspirin 81mg tablet.DR PO SCH (07:55)
[2019-02-06] MEDS: carVEDilol 3.125mg tablet PO SCH (07:55)
[2019-02-06] MEDS: lactobacillus rhamnosus 10,000 MMU CELLS/CAPSULE PO SCH ×2 (07:56→19:03)
[2019-02-06] MEDS: levoTHYROXINE 75mcg tablet PO SCH (07:56)
[2019-02-06] MEDS: losartan 50mg tablet PO SCH (07:56)
[2019-02-06] MEDS: NUT.TX.GLUC.INTOLER,LAC-FR,SOY (GLUCERNA) 237 ML PO SCH ×3 (07:59→19:04)
[2019-02-06] MEDS: insulin Lispro (HumaLOG) vial - multi-dose SQ SCH ×3 (08:12→19:03)
[2019-02-06] MEDS: magnesium Cl slow-release 64mg tablet PO PRN ×2 (09:17→17:33)
[2019-02-06] MEDS: potassium Cl 20 mEq SR tablet PO PRN ×3 (09:17→18:58)
[2019-02-06 10:51] LABS: ABG BASE EXCESS -1.5 mmol/L (-2.0-3.0); ABG HCO3 22.3 mmol/L (22.0-26.0); ABG OXYGEN SATURATION 95.2 % (95-98); ABG PCO2 (T) 34.1 mmHg (35.0-45.0); ABG PH (T) 7.433 (7.350-7.450); ABG PO2 (T) 77.6 mmHg (83-108); ALLEN'S TEST Positive; FCOHb 0.3 % (0.5-1.5); FMetHb 0.1 % (0.3-1.12); FO2Hb 94.8 % (94-100); PATIENT TEMPERATURE 37.1; TOTAL HEMOGLOBIN 11.1 G/dl (14.0-17.9)
[2019-02-06 11:00] VITALS: BP 152/60
--- NOTE | 2019-02-06 13:14 | NUR ---
John trigger: John 11; skin intact. Pt remains non-verbal but present at bedside seen by RD and provided written/verbal malnutrition/DM eds w/ RD contact information. Pt SO requests double veggies TID, low kcal yogurt BIDLD; RD d/w dietary. SO reports pt 25-50% PO glucernas here but baseline at home is 50% glucernas. LBM 02/05. Pt PO increased to 25-50% avg meals w/ 25% avg glucerna today. Will continue to monitor. Rec: 1. continue pureed/thin/carb controlled diet per MD/MARKETING PROJECT COORDINATOR; encourage PO 2. Glucerna TIDWM; double veggies TID, yogurt BIDLD 3. weekly wts Addendum: 02/06/19 at [address] Amended: Links added.
[2019-02-06 15:00] VITALS: BP 156/72
[2019-02-06] MEDS: piperacillin/tazo 3.375gm/50ml 50 ML IV SCH (15:45)
[2019-02-06 18:00] VITALS: BP 140/68
--- NOTE | 2019-02-06 18:19 | NUR ---
[place]rientee documentation: I have reviewed and agree with all interventions, assessments performed and documented by FAHEEM Anaya. [place] Medication Administration: For this medication-pass time frame, all medication were reviewed, dispensed, administered and documented per hospital policy by FAHEEM Anaya.
--- NOTE | 2019-02-06 18:30 | NUR ---
Problems reprioritized. Patient report given, questions answered & plan of care reviewed with Rekha MAYEN & Jenni MAYEN.
--- NOTE | 2019-02-06 18:36 | NUR ---
Patient in room PCU 3022. I have received report from Elsa MAYEN and had the opportunity to ask questions and assume patient care.
--- NOTE | 2019-02-06 20:30 | NUR ---
Patient has voided since removal of troy catheter. He was incontinent of urine and the urine was clear yellow in color.
[2019-02-06] MEDS: atorvastatin 10mg tablet PO SCH (21:05)
[2019-02-06] MEDS: gabapentin 100mg capsule PO SCH (21:05)
[2019-02-06] MEDS: insulin glargine (Lantus) pen - multi-dose SQ SCH (21:14)
[2019-02-06 22:00] VITALS: BP 150/64
[2019-02-07] MEDS: piperacillin/tazo 3.375gm/50ml 50 ML IV SCH ×2 (00:04→08:34)
[2019-02-07] MEDS: dextrose 5%-1/2 normal saline 1,000 ML IV SCH (01:15)
[2019-02-07 02:00] VITALS: BP 146/72
[2019-02-07 05:00] LABS: BASOPHILS % (AUTO) 0 % (0-1); EOSINOPHILS # (AUTO) 0.4 X10'3 (0-0.9); EOSINOPHILS % (AUTO) 2.1 % (0-6); HEMATOCRIT 26.7 % (42.0-52.0); HEMOGLOBIN 8.7 g/dl (14.0-17.9); LYMPHOCYTES # (AUTO) 2.1 X10'3 (1.1-4.8); LYMPHOCYTES % (AUTO) 11.1 % (21-51); MEAN CORPUSCULAR HEMOGLOBIN 28.5 PG (27.0-31.0); MEAN CORPUSCULAR HGB CONC 32.7 g/dL (33.0-36.5); MEAN CORPUSCULAR VOLUME 87.1 FL (78-98); MEAN PLATELET VOLUME 8.4 FL (7.4-10.4); MONOCYTES # (AUTO) 1.6 X10'3 (0-0.9); MONOCYTES % (AUTO) 8.6 % (2-12); NEUTROPHILS # (AUTO) 14.6 X10'3 (1.8-7.7); NEUTROPHILS % (AUTO) 78.2 % (42-75); PLATELET COUNT 240 X10'3 (140-440); RED BLOOD COUNT 3.06 X10'6 (4.70-6.10); RED CELL DISTRIBUTION WIDTH 14.3 % (11.5-14.5); WHITE BLOOD COUNT 18.7 X10'3 (4.5-11.0)
[2019-02-07 05:29] LABS: ALBUMIN 1.4 G/DL (3.4-5.0); ANION GAP 8 (8-16); BLOOD UREA NITROGEN 13 MG/DL (7-18); BUN/CREATININE RATIO 12.4 (5.4-32.0); CALCIUM 7.5 MG/DL (8.5-10.1); CHLORIDE 104 MMOL/L (99-107); CREATININE 1.05 MG/DL (0.60-1.10); GLUCOSE 235 MG/DL (70-104); MAGNESIUM 1.1 MG/DL (1.5-2.4); POTASSIUM 4.1 MMOL/L (3.5-5.1); SODIUM 135 MMOL/L (135-145); TOTAL CARBON DIOXIDE 22.6 MMOL/L (24-32); eGFR 67 ML/MIN
[2019-02-07 06:00] VITALS: BP 138/54
--- NOTE | 2019-02-07 06:05 | NUR ---
Patient in room PCU 3022. I have received report from Rekha MAYEN and Karissa MAYEN and had the opportunity to ask questions and assume patient care.
--- NOTE | 2019-02-07 06:24 | NUR ---
Problems reprioritized. Patient report given, questions answered & plan of care reviewed with Dewey MAYEN.
[2019-02-07 06:37] LABS: TOTAL CELLS COUNTED 100
[2019-02-07 06:39] LABS: PLATELET ESTIMATE NORMAL; POLYCHROMASIA FEW
[2019-02-07] MEDS: aspirin 81mg tablet.DR PO SCH (07:26)
[2019-02-07] MEDS: lactobacillus rhamnosus 10,000 MMU CELLS/CAPSULE PO SCH (07:26)
[2019-02-07] MEDS: magnesium Cl slow-release 64mg tablet PO PRN (07:26)
[2019-02-07] MEDS: losartan 50mg tablet PO SCH (07:27)
[2019-02-07] MEDS: pantoprazole 40mg Tablet.DR PO SCH (07:27)
[2019-02-07] MEDS: levoTHYROXINE 75mcg tablet PO SCH (07:27)
[2019-02-07] MEDS: carVEDilol 3.125mg tablet PO SCH (07:27)
[2019-02-07] MEDS: NUT.TX.GLUC.INTOLER,LAC-FR,SOY (GLUCERNA) 237 ML PO SCH (08:00)
[2019-02-07] MEDS: insulin Lispro (HumaLOG) vial - multi-dose SQ SCH ×2 (09:11→13:48)
[2019-02-07 11:00] VITALS: BP 145/69
--- NOTE | 2019-02-07 15:00 | NUR ---
Pt transferred to [facility] rehab. Pt stable upon DC and vitals within normal limits. Report called to [facility] to Robert. Pt's belongings gathered and sent with . [facility] arrived to unit and transferred Pt to [facility]. [facility] personal given Pt packet. Pt and [facility] personal left in [facility] van to [facility].
== END 2019-02-07 15:01 | DRG 871 ==
LOC: EDSEX → ER 14:00 → PCU 3S 19:35 → CMPBEDREQ 19:43
PROVIDERS: ADMIT Internal Medicine; ATTEND Family Medicine
PROC: 0F9430Z Drainage of Gallbladder with Drainage Device, Percutaneous Approach (ICD-10-PCS; principal; 2019-01-31)
PROC: 4A10X4Z Monitoring of Central Nervous Electrical Activity, External Approach (ICD-10-PCS; 2019-02-01)
DX: A41.9 Sepsis, unspecified organism (principal); I21.4 Non-ST elevation (NSTEMI) myocardial infarction; K80.00 Calculus of gallbladder with acute cholecystitis without obstruction; D62 Acute posthemorrhagic anemia; I13.0 Hypertensive heart and chronic kidney disease with heart failure and stage 1 through stage 4 chronic kidney disease, or unspecified chronic kidney disease; G93.40 Encephalopathy, unspecified; N17.9 Acute kidney failure, unspecified; I25.10 Atherosclerotic heart disease of native coronary artery without angina pectoris; E78.5 Hyperlipidemia, unspecified; N35.919 Unspecified urethral stricture, male, unspecified site; R31.0 Gross hematuria; R33.8 Other retention of urine; E03.9 Hypothyroidism, unspecified; E11.22 Type 2 diabetes mellitus with diabetic chronic kidney disease; I95.9 Hypotension, unspecified; N13.9 Obstructive and reflux uropathy, unspecified; E11.319 Type 2 diabetes mellitus with unspecified diabetic retinopathy without macular edema; M54.9 Dorsalgia, unspecified; E11.40 Type 2 diabetes mellitus with diabetic neuropathy, unspecified; E78.00 Pure hypercholesterolemia, unspecified; E86.0 Dehydration; G89.29 Other chronic pain; I50.9 Heart failure, unspecified; N18.9 Chronic kidney disease, unspecified; N40.1 Benign prostatic hyperplasia with lower urinary tract symptoms; Z74.01 Bed confinement status; Z79.82 Long term (current) use of aspirin; Z79.899 Other long term (current) drug therapy; I25.2 Old myocardial infarction; Z85.46 Personal history of malignant neoplasm of prostate; Z95.1 Presence of aortocoronary bypass graft; Z68.27 Body mass index [BMI] 27.0-27.9, adult; Z91.018 Allergy to other foods; Z79.4 Long term (current) use of insulin; E87.6 Hypokalemia; Z86.73 Personal history of transient ischemic attack (TIA), and cerebral infarction without residual deficits
CPT/HCPCS: 36415; 36600; 47532; 70450; 70551; 71045; 71250; 74176; 74177; 76775; 76937; 80048; 80053; 80061; 80076; 81001; 82140; 82803; 82948; 83036; 83605; 83735; 83880; 84132; 84145; 84443; 84484; 85018; 85025; 85730; 87040; 87070; 87075; 87077; 87081; 87088; 87102; 87186; 92508; 92616; 93005; 93306; 93880; 95816; 96361; 96365; 96375; 97110; 97112; 97116; 97163; 97530; 99152; 99153; 99285; C1894; G0378; J0696; J1644; J1650; J1815; J2250; J2270; J2310; J2405; J2543; J2805; J3010; J3480; J7030; P9612; Q9967

== ENCOUNTER 2019-02-16 00:40 | Inpatient (IN) | payer MEDICARE ==
[~2019-02-16] VITALS: Ht 165.1 cm; Wt 83.1 kg
[2019-02-16] VITALS (8 sets, daily range): BP systolic 127–149; BP diastolic 75–102
[~2019-02-16 00:40] MED LIST changes: +AMLO2.5T5 PO; +CHOL100046 PO; -CHOL200035 PO; -CYAN100070 PO; +CYAN500T46 PO; +DICL100G15 TOP; -HC A30CR2 RC; -IRON-11 PO; +IRON18TA PO; -LOSA50TA3 PO; -ONDA8TAB6 PO; +POLY17PO10 PO; -RESERVATROL PO; +RESV1TAB2 PO; -UBIQUINOL; +VALS80TA32 PO
[2019-02-16] MEDS ORDERED: normal saline 1000ML IV soln IV ONE (00:45)
--- NOTE | 2019-02-16 00:55 | NUR ---
PER DR HINOJOSA, MAY USE RIGHT SIDE EXTENDED PIV THAT WAS PREVIOUSLY PLACED FOR IV ACCESS.
[2019-02-16 01:25] LABS: BASOPHILS # (AUTO) 0.1 X10'3 (0-0.2); BASOPHILS % (AUTO) 0.4 % (0-1); EOSINOPHILS # (AUTO) 0.1 X10'3 (0-0.9); EOSINOPHILS % (AUTO) 0.6 % (0-6); HEMATOCRIT 23.5 % (35.0-45.0); HEMOGLOBIN 7.8 g/dl (12.0-16.0); LYMPHOCYTES # (AUTO) 1.5 X10'3 (1.1-4.8); LYMPHOCYTES % (AUTO) 12.9 % (21-51); MEAN CORPUSCULAR HEMOGLOBIN 28.5 PG (27.0-31.0); MEAN CORPUSCULAR HGB CONC 33.1 g/dL (33.0-36.5); MEAN CORPUSCULAR VOLUME 86.1 FL (78-98); MEAN PLATELET VOLUME 7.7 FL (7.4-10.4); MONOCYTES % (AUTO) 8.4 % (2-12); NEUTROPHILS # (AUTO) 8.9 X10'3 (1.8-7.7); NEUTROPHILS % (AUTO) 77.7 % (42-75); PLATELET COUNT 348 X10'3 (140-440); RED BLOOD COUNT 2.74 X10'6 (4.20-5.60); RED CELL DISTRIBUTION WIDTH 15.7 % (11.5-14.5); WHITE BLOOD COUNT 11.5 X10'3 (4.5-11.0)
[2019-02-16 01:40] LABS: PARTIAL THROMBOPLASTIN TIME 31 SECONDS (22-32)
[2019-02-16 01:45] LABS: ALANINE AMINOTRANSFERASE 42 U/L (12-78); ALBUMIN 1.6 G/DL (3.4-5.0); ALBUMIN/GLOBULIN RATIO 0.4 (1.1-1.5); ALKALINE PHOSPHATASE 62 IU/L (46-116); ANION GAP 7 (8-16); ASPARTATE AMINO TRANSFERASE 189 U/L (10-37); BILIRUBIN,TOTAL 0.4 MG/DL (0.1-1.0); BLOOD UREA NITROGEN 13 MG/DL (7-18); BUN/CREATININE RATIO 10.2 (6.6-38.0); CALCIUM 8.4 MG/DL (8.5-10.1); CHLORIDE 107 MMOL/L (99-107); CREATININE 1.27 MG/DL (0.40-0.90); GLUCOSE 89 MG/DL (70-104); MAGNESIUM 1.6 MG/DL (1.5-2.4); POTASSIUM 3.7 MMOL/L (3.5-5.1); SODIUM 141 MMOL/L (135-145); TOTAL CARBON DIOXIDE 27.5 MMOL/L (24-32); TOTAL PROTEIN 5.6 G/DL (6.4-8.2); eGFR 40 ML/MIN
[2019-02-16] MEDS ORDERED: cefepime 1GM/NS ADD-VANTAGE 100 ML IV ONE (02:10)
[2019-02-16] MEDS ORDERED: azithromycin/NS 500mg/250ml 250 ML IV ONE (02:10)
[2019-02-16] MEDS ORDERED: vancomycin/NS 1 GM ADD-VANTAGE 250 ML X 1 DOSE IV ONE (02:15)
[2019-02-16] MEDS ORDERED: furosemide 10 MG/1 ML 10ml inj IV ONE (03:05)
[2019-02-16] MEDS ORDERED: mag hydrox/Alum hydrox/simeth 30ml oral suspension PO PRN (03:50)
[2019-02-16] MEDS ORDERED: ondansetron/PF 4mg/2ml inj IV PRN (03:50)
[2019-02-16] MEDS ORDERED: acetaminophen 325mg tablet PO PRN (03:50)
[2019-02-16] MEDS ORDERED: dextrose 50%-water 50ml dispensing syringe IV PRN ×2 (04:00)
[2019-02-16] MEDS ORDERED: glucagon, human recombinant 1mg kit SUBCUT PRN (04:00)
[2019-02-16] MEDS ORDERED: dextrose ORAL solution 15 GM/59 ML bottle PO PRN ×2 (04:00)
[2019-02-16] MEDS ORDERED: MESSAGE TO PHARMACY PO ONE (04:00)
--- NOTE | 2019-02-16 06:43 | NUR ---
pt sleeping but was cold. given a warm blanket. pt's at bedside trying to rest.
[2019-02-16] MEDS ORDERED: pantoprazole 40mg Tablet.DR PO SCH (07:30)
[2019-02-16] MEDS ORDERED: heparin, porcine 5000 units/ml vial SQ SCH (08:00)
[2019-02-16] MEDS ORDERED: furosemide 10 MG/1 ML 10ml inj IV SCH (08:00)
[2019-02-16] MEDS ORDERED: RESVERATROL PO SCH (08:00)
[2019-02-16] MEDS ORDERED: GRAPE SKIN EXTRACT PO SCH (08:00)
[2019-02-16] MEDS: ferrous sulfate 325mg tablet PO SCH (08:15)
[2019-02-16] MEDS: losartan 50mg tablet PO SCH (08:15)
[2019-02-16] MEDS: cyanocobalamin 500mcg tablet PO SCH (08:15)
[2019-02-16] MEDS: multivitamins, therapeutics tablet PO SCH (08:16)
[2019-02-16] MEDS: amLODIPine 2.5mg tablet PO SCH ×2 (08:18→20:28)
[2019-02-16] MEDS: clopidogrel 75mg tablet PO SCH (08:18)
[2019-02-16] MEDS: levoTHYROXINE 75mcg tablet PO SCH (08:18)
[2019-02-16] MEDS: polyethylene glycol 3350 17gm powd pack PO SCH (08:44)
[2019-02-16] MEDS: cefepime 1GM/NS ADD-VANTAGE 100 ML IV SCH ×2 (08:44→16:46)
[2019-02-16] MEDS: pantoprazole 40 MG vial IV SCH ×2 (12:20→20:27)
--- NOTE | 2019-02-16 13:14 | NUR ---
PAGER ID: [phone] MESSAGE: [phone] James Tran: Last stay troy was placed by urologist because when the last nurse tried it cause bleeding to the uretha. Do you want a urologist tp place the troy or us to try first? Sienna Gutierrez ext [phone]
[2019-02-16] MEDS ORDERED: heparin 10,000 units/1 ML INJ IV SCH (13:50)
[2019-02-16] MEDS ORDERED: heparin 10,000 units/1 ML INJ IV ONE (13:50)
[2019-02-16] MEDS ORDERED: furosemide 20 MG/2 ML vial IV ONE (14:00)
--- NOTE | 2019-02-16 14:02 | NUR ---
Dr Loco ordered Heparin gtt (cardiac) but no starting bolus.
[2019-02-16] MEDS ORDERED: heparin 25,000 UNIT/250ml bag 250 ML IV SCH (14:09)
[2019-02-16] MEDS ORDERED: heparin 10,000 units/1 ML INJ IV PRN (14:10)
[2019-02-16 14:15] LABS: HEMATOCRIT 32.9 % (42.0-52.0); HEMOGLOBIN 10.9 g/dl (14.0-17.9); MEAN CORPUSCULAR HGB CONC 33.1 g/dL (33.0-36.5); MEAN CORPUSCULAR VOLUME 87.6 FL (78-98); MEAN PLATELET VOLUME 8.2 FL (7.4-10.4); PLATELET COUNT 286 X10'3 (140-440); RED BLOOD COUNT 3.75 X10'6 (4.70-6.10); RED CELL DISTRIBUTION WIDTH 15.6 % (11.5-14.5); WHITE BLOOD COUNT 9.8 X10'3 (4.5-11.0)
--- NOTE | 2019-02-16 18:17 | NUR ---
Problems reprioritized. Patient report given, questions answered & plan of care reviewed with FAHEEM Patel.
[2019-02-16] MEDS: furosemide 40mg/4ml inj IV SCH (20:27)
[2019-02-16] MEDS: atorvastatin 10mg tablet PO SCH (20:27)
[2019-02-16] MEDS: gabapentin 100mg capsule PO SCH (20:27)
[2019-02-16] MEDS: lactobacillus rhamnosus 10,000 MMU CELLS/CAPSULE PO SCH (20:28)
[2019-02-16 20:45] LABS: HEMATOCRIT 33.7 % (42.0-52.0); HEMOGLOBIN 11.1 g/dl (14.0-17.9); MEAN CORPUSCULAR HEMOGLOBIN 28.9 PG (27.0-31.0); MEAN CORPUSCULAR VOLUME 87.5 FL (78-98); MEAN PLATELET VOLUME 7.8 FL (7.4-10.4); PLATELET COUNT 300 X10'3 (140-440); RED BLOOD COUNT 3.85 X10'6 (4.70-6.10); RED CELL DISTRIBUTION WIDTH 15.5 % (11.5-14.5); WHITE BLOOD COUNT 10.9 X10'3 (4.5-11.0)
[2019-02-16] MEDS: insulin glargine (Lantus) pen - multi-dose SQ SCH (20:46)
[2019-02-17] VITALS (13 sets, daily range): BP systolic 127–151; BP diastolic 68–84
[2019-02-17] MEDS: cefepime 1GM/NS ADD-VANTAGE 100 ML IV SCH ×3 (00:32→16:11)
[2019-02-17 04:43] LABS: ALANINE AMINOTRANSFERASE 36 U/L (12-78); ALBUMIN 1.7 G/DL (3.4-5.0); ALBUMIN/GLOBULIN RATIO 0.4 (1.1-1.5); ALKALINE PHOSPHATASE 67 IU/L (46-116); ANION GAP 10 (8-16); ASPARTATE AMINO TRANSFERASE 90 U/L (10-37); BILIRUBIN,TOTAL 0.4 MG/DL (0.1-1.0); BLOOD UREA NITROGEN 13 MG/DL (7-18); BUN/CREATININE RATIO 10.4 (5.4-32.0); CALCIUM 8.1 MG/DL (8.5-10.1); CHLORIDE 104 MMOL/L (99-107); CREATININE 1.25 MG/DL (0.60-1.10); GLUCOSE 203 MG/DL (70-104); POTASSIUM 3.6 MMOL/L (3.5-5.1); SODIUM 140 MMOL/L (135-145); TOTAL CARBON DIOXIDE 26.1 MMOL/L (24-32); eGFR 55 ML/MIN
[2019-02-17 04:47] LABS: BASOPHILS # (AUTO) 0.1 X10'3 (0-0.2); BASOPHILS % (AUTO) 1.1 % (0-1); EOSINOPHILS # (AUTO) 0.2 X10'3 (0-0.9); EOSINOPHILS % (AUTO) 1.7 % (0-6); HEMATOCRIT 32.2 % (42.0-52.0); HEMOGLOBIN 10.9 g/dl (14.0-17.9); LYMPHOCYTES % (AUTO) 10.8 % (21-51); MEAN CORPUSCULAR HEMOGLOBIN 29.7 PG (27.0-31.0); MEAN CORPUSCULAR HGB CONC 33.8 g/dL (33.0-36.5); MEAN CORPUSCULAR VOLUME 87.7 FL (78-98); MEAN PLATELET VOLUME 8.2 FL (7.4-10.4); MONOCYTES % (AUTO) 10.5 % (2-12); NEUTROPHILS # (AUTO) 7.1 X10'3 (1.8-7.7); NEUTROPHILS % (AUTO) 75.9 % (42-75); PLATELET COUNT 281 X10'3 (140-440); RED BLOOD COUNT 3.68 X10'6 (4.70-6.10); RED CELL DISTRIBUTION WIDTH 15.9 % (11.5-14.5); WHITE BLOOD COUNT 9.4 X10'3 (4.5-11.0)
[2019-02-17 04:49] LABS: TROPONIN I 17.52 NG/ML (0.0-0.05)
[2019-02-17] MEDS ORDERED: midazolam 2 mg/2 ml injection ONE (06:23)
[2019-02-17] MEDS ORDERED: fentaNYL/PF 50MCG/1 ML 2ML syringe ONE (06:23)
[2019-02-17] MEDS ORDERED: iohexol 350MG/ML 100ml bottle IV ONE (06:23)
[2019-02-17] MEDS ORDERED: LIDOcaine 1% (10mg/ml)w/preservative injection 20ml MDV ONE (06:23)
--- NOTE | 2019-02-17 06:50 | NUR ---
received report from FAHEEM Luz. just after receiving report FAHEEM Mercedes from [facility] came to get pt. pt alert and oriented, in no distress. at bedside. pt taken to [facility] by FAHEEM Mercedes and myself.
[2019-02-17] MEDS ORDERED: iohexol 350 MG/ML 50ML vial IV ONE (07:06)
[2019-02-17] MEDS ORDERED: HYDROcodone/acetaminophen 10/325mg tab PO PRN (07:50)
[2019-02-17] MEDS ORDERED: HYDROcodone/acetaminophen 5mg/325mg tablet PO PRN (07:50)
[2019-02-17] MEDS ORDERED: proCHLORperazine 10 MG/2 ml inj IV PRN (07:50)
[2019-02-17] MEDS ORDERED: OXAZEpam 15mg capsule PO PRN (07:50)
[2019-02-17 07:56] LABS: HEMATOCRIT 31.7 % (42.0-52.0); HEMOGLOBIN 10.7 g/dl (14.0-17.9); MEAN CORPUSCULAR HEMOGLOBIN 29.1 PG (27.0-31.0); MEAN CORPUSCULAR HGB CONC 33.9 g/dL (33.0-36.5); MEAN CORPUSCULAR VOLUME 85.9 FL (78-98); MEAN PLATELET VOLUME 7.9 FL (7.4-10.4); PLATELET COUNT 294 X10'3 (140-440); RED BLOOD COUNT 3.69 X10'6 (4.70-6.10); RED CELL DISTRIBUTION WIDTH 15.4 % (11.5-14.5); WHITE BLOOD COUNT 9.5 X10'3 (4.5-11.0)
[2019-02-17] MEDS: amLODIPine 2.5mg tablet PO SCH (08:00)
[2019-02-17] MEDS: carvedilol 6.25mg tablet PO SCH ×2 (08:40→22:27)
[2019-02-17] MEDS: clopidogrel 75mg tablet PO SCH (08:41)
[2019-02-17] MEDS: ferrous sulfate 325mg tablet PO SCH (08:41)
[2019-02-17] MEDS: lactobacillus rhamnosus 10,000 MMU CELLS/CAPSULE PO SCH ×2 (08:41→22:28)
[2019-02-17] MEDS: multivitamins, therapeutics tablet PO SCH (08:41)
[2019-02-17] MEDS: levoTHYROXINE 75mcg tablet PO SCH (08:42)
[2019-02-17] MEDS: cyanocobalamin 500mcg tablet PO SCH (08:42)
[2019-02-17] MEDS: polyethylene glycol 3350 17gm powd pack PO SCH (08:42)
[2019-02-17] MEDS: losartan 50mg tablet PO SCH (08:42)
[2019-02-17] MEDS: pantoprazole 40 MG vial IV SCH (08:42)
[2019-02-17] MEDS: furosemide 40mg/4ml inj IV SCH ×2 (08:43→22:24)
[2019-02-17] MEDS: aspirin 81mg tablet.DR PO SCH (09:06)
--- NOTE | 2019-02-17 10:48 | NUR ---
Low John of 11, skin intact per physical assessment. Pt with A1c 7.6 recently admitted, pt and SO seen by [facility] 02/06/19 and provided with written and verbal DM education with referral to outpatient DM class and RD contact information. No further education warranted at this time. Will continue to follow. Addendum: 02/17/19 at [address] Amended: Links added.
--- NOTE | 2019-02-17 14:00 | NUR ---
PTS DOES NOT WANT INSULIN COVERAGE SINCE PT DID NOT EAT LUNCH
[2019-02-17 14:08] LABS: HEMATOCRIT 31.8 % (42.0-52.0); HEMOGLOBIN 10.8 g/dl (14.0-17.9); MEAN CORPUSCULAR HEMOGLOBIN 29.4 PG (27.0-31.0); MEAN CORPUSCULAR HGB CONC 33.9 g/dL (33.0-36.5); MEAN CORPUSCULAR VOLUME 86.7 FL (78-98); MEAN PLATELET VOLUME 7.9 FL (7.4-10.4); PLATELET COUNT 289 X10'3 (140-440); RED BLOOD COUNT 3.66 X10'6 (4.70-6.10); RED CELL DISTRIBUTION WIDTH 15.9 % (11.5-14.5); WHITE BLOOD COUNT 8.7 X10'3 (4.5-11.0)
--- NOTE | 2019-02-17 16:47 | NUR ---
PAGED DR WALKER PAGER ID: [phone] MESSAGE: URSULA KHAN [phone] SHANNON DAUGHTER WANTS YOU TO ORDER PBNP AND CXR TOMORROW PLEASE
--- NOTE | 2019-02-17 18:30 | NUR ---
Patient in room PCU 3027. I have received report from Rmay Gomez RN and had the opportunity to ask questions and assume patient care.
--- NOTE | 2019-02-17 18:51 | NUR ---
Problems reprioritized. Patient report given, questions answered & plan of care reviewed with DANITA RN.
[2019-02-17] MEDS: insulin glargine (Lantus) pen - multi-dose SQ SCH (21:00)
--- NOTE | 2019-02-17 21:00 | NUR ---
Lantus held per md orders (nurse instructions) all insulin to be dosed per pt family wishes. per conversation with family no lantus because pt is not eating at the moment.
[2019-02-17] MEDS: atorvastatin 10mg tablet PO SCH (22:28)
[2019-02-17] MEDS: docusate sod 100mg capsule PO SCH (22:28)
[2019-02-17] MEDS: gabapentin 100mg capsule PO SCH (22:28)
[2019-02-17] MEDS: pantoprazole 40mg Tablet.DR PO SCH (22:29)
[2019-02-17] MEDS: ondansetron/PF 4mg/2ml inj IV PRN (22:58)
[2019-02-18] MEDS: cefepime 1GM/NS ADD-VANTAGE 100 ML IV SCH (00:28)
[2019-02-18 03:00] VITALS: BP 130/62
[2019-02-18 06:00] VITALS: BP 142/55
[2019-02-18 06:35] LABS: BASOPHILS % (AUTO) 0.5 % (0-1); EOSINOPHILS # (AUTO) 0.2 X10'3 (0-0.9); EOSINOPHILS % (AUTO) 2.2 % (0-6); HEMATOCRIT 29.2 % (42.0-52.0); HEMOGLOBIN 9.9 g/dl (14.0-17.9); LYMPHOCYTES % (AUTO) 13.6 % (21-51); MEAN CORPUSCULAR HEMOGLOBIN 29.4 PG (27.0-31.0); MEAN CORPUSCULAR HGB CONC 33.9 g/dL (33.0-36.5); MEAN CORPUSCULAR VOLUME 86.8 FL (78-98); MEAN PLATELET VOLUME 8.1 FL (7.4-10.4); MONOCYTES # (AUTO) 0.8 X10'3 (0-0.9); MONOCYTES % (AUTO) 10.9 % (2-12); NEUTROPHILS # (AUTO) 5.1 X10'3 (1.8-7.7); NEUTROPHILS % (AUTO) 72.8 % (42-75); PLATELET COUNT 263 X10'3 (140-440); RED BLOOD COUNT 3.37 X10'6 (4.70-6.10); RED CELL DISTRIBUTION WIDTH 15.2 % (11.5-14.5)
--- NOTE | 2019-02-18 06:43 | NUR ---
Patient in room PCU 3027. I have received report from DANITA, FAHEEM and had the opportunity to ask questions and assume patient care. PT IN BED SLEEPING, AROUSABLE WHEN WOKEN, PTS AT BEDSIDE
--- NOTE | 2019-02-18 06:46 | NUR ---
Problems reprioritized. Patient report given, questions answered & plan of care reviewed with Felicitas Gomez RN.
[2019-02-18 06:48] LABS: ALANINE AMINOTRANSFERASE 29 U/L (12-78); ALBUMIN 1.5 G/DL (3.4-5.0); ALBUMIN/GLOBULIN RATIO 0.4 (1.1-1.5); ALKALINE PHOSPHATASE 59 IU/L (46-116); ANION GAP 8 (8-16); ASPARTATE AMINO TRANSFERASE 44 U/L (10-37); BILIRUBIN,TOTAL 0.4 MG/DL (0.1-1.0); BLOOD UREA NITROGEN 14 MG/DL (7-18); BUN/CREATININE RATIO 10.4 (5.4-32.0); CALCIUM 8.2 MG/DL (8.5-10.1); CHLORIDE 105 MMOL/L (99-107); CHOL/HDL RATIO 3.6 (0.00-4.99); CHOLESTEROL 116 MG/DL (0-200); CREATININE 1.34 MG/DL (0.60-1.10); GLUCOSE 231 MG/DL (70-104); HDL CHOLESTEROL 32 MG/DL (35-60); LDL CHOLESTEROL 72 MG/DL (50-100); POTASSIUM 3.4 MMOL/L (3.5-5.1); SODIUM 142 MMOL/L (135-145); TOTAL CARBON DIOXIDE 28.7 MMOL/L (24-32); TOTAL PROTEIN 5.6 G/DL (6.4-8.2); TRIGLYCERIDES 75 MG/DL (20-135); eGFR 51 ML/MIN
--- NOTE | 2019-02-18 08:15 | NUR ---
paged dr almeida PAGER ID: [phone] MESSAGE: peg lan [phone] dick chandler do you want k replacement? k 3.4 concerned about him being fatigued, he is alert and arousable when woken Addendum: 02/18/19 at 0823 by Peg Colunga RN spoke with dr almeida. he is aware of pts condition, rt eval and treat and k replacement orders received
[2019-02-18] MEDS ORDERED: potassium Cl 20 mEq SR tablet PO PRN (08:20)
[2019-02-18] MEDS ORDERED: potassium CL 10mEq/100ml bag 100 ML IV PRN (08:20)
[2019-02-18] MEDS: ondansetron/PF 4mg/2ml inj IV PRN (08:25)
--- NOTE | 2019-02-18 08:47 | NUR ---
AM MEDS HELD AT THIS POINT DUE TO NAUSEA, ZOFRAN GIVEN, AWARE
[2019-02-18 09:02] LABS: MAGNESIUM 1.3 MG/DL (1.5-2.4)
[2019-02-18] MEDS: clopidogrel 75mg tablet PO SCH (09:54)
[2019-02-18] MEDS: furosemide 40mg/4ml inj IV SCH ×2 (09:54→19:18)
[2019-02-18] MEDS: cyanocobalamin 500mcg tablet PO SCH (09:55)
[2019-02-18] MEDS: ferrous sulfate 325mg tablet PO SCH (09:55)
[2019-02-18] MEDS: levoTHYROXINE 75mcg tablet PO SCH (09:55)
[2019-02-18] MEDS: lactobacillus rhamnosus 10,000 MMU CELLS/CAPSULE PO SCH ×2 (09:55→19:19)
[2019-02-18] MEDS: aspirin 81mg tablet.DR PO SCH (09:55)
[2019-02-18] MEDS: docusate sod 100mg capsule PO SCH ×2 (09:55→19:19)
[2019-02-18] MEDS: multivitamins, therapeutics tablet PO SCH (09:55)
[2019-02-18] MEDS: potassium Cl 20 mEq SR tablet PO PRN ×3 (09:56→19:19)
[2019-02-18] MEDS: polyethylene glycol 3350 17gm powd pack PO SCH (09:56)
[2019-02-18 10:06] VITALS: BP 139/72
[2019-02-18] MEDS: carvedilol 6.25mg tablet PO SCH ×2 (10:07→19:19)
[2019-02-18] MEDS: pantoprazole 40mg Tablet.DR PO SCH ×2 (10:07→19:19)
[2019-02-18] MEDS: insulin Lispro (HumaLOG) vial - multi-dose SQ SCH ×3 (10:10→19:17)
[2019-02-18] MEDS ORDERED: magnesium 4gm in 100ml NS 100 ML IV PRN (10:55)
[2019-02-18] MEDS ORDERED: magnesium 2GM in 50ml NS 50 ML IV PRN (10:55)
[2019-02-18 11:00] VITALS: BP 150/77
[2019-02-18] MEDS: magnesium Cl slow-release 64mg tablet PO PRN ×2 (11:31→21:22)
[2019-02-18 11:51] LABS: CLARITY,URINE CLEAR (Clear); COLOR,URINE YELLOW (Yellow); GLUCOSE, URINE NEGATIVE (Neg); KETONES,URINE NEGATIVE (Neg); LEUKOCYTE ESTERASE ,URINE NEGATIVE (Neg); NITRITES, URINE NEGATIVE (Neg); OCCULT BLOOD,URINE NEGATIVE (Neg); PROTEIN,URINE NEGATIVE (Neg); UROBILINOGEN,URINE 0.2 E.U/dL (0.2-1.0)
[2019-02-18 11:52] LABS: UA COLLECTION TYPE NON-SPECIFIED
[2019-02-18] MEDS: NUT.TX.GLUC.INTOLER,LAC-FR,SOY (GLUCERNA) 237 ML PO SCH ×2 (13:41→18:34)
[2019-02-18 15:00] VITALS: BP 125/62
[2019-02-18 15:45] LABS: HEMATOCRIT 31.6 % (42.0-52.0); HEMOGLOBIN 10.5 g/dl (14.0-17.9); MEAN CORPUSCULAR HEMOGLOBIN 28.7 PG (27.0-31.0); MEAN CORPUSCULAR HGB CONC 33.3 g/dL (33.0-36.5); MEAN CORPUSCULAR VOLUME 86.1 FL (78-98); PLATELET COUNT 272 X10'3 (140-440); RED BLOOD COUNT 3.68 X10'6 (4.70-6.10); RED CELL DISTRIBUTION WIDTH 15.2 % (11.5-14.5); WHITE BLOOD COUNT 6.7 X10'3 (4.5-11.0)
--- NOTE | 2019-02-18 16:09 | NUR ---
PAGED DR WALKER PAGER ID: [phone] MESSAGE: FELICITAS Layla [phone] YES[address] ORTEGA REQUESTING FEEDING TUBE DUE TO POOR INTAKE. GLUCERNA ADDED TODAY. Addendum: 02/18/19 at 1618 by Felicitas Colunga RN PER CONVERSATION WITH DR WALKER HE DOES NOT WANT NG/FEEDING AT THIS TIME Addendum: 02/18/19 at 1635 by Felicitas Colunga RN PTS AWARE MD DOES NOT WANT FEEDING AT THIS TIME, ENC PO INTAKE
[2019-02-18] MEDS: magnesium hydroxide 30ml (MOM) UD suspension PO PRN (16:47)
[2019-02-18 18:30] VITALS: BP 139/69
--- NOTE | 2019-02-18 18:33 | NUR ---
Problems reprioritized. Patient report given, questions answered & plan of care reviewed with FAHEEM DIAZ AND FAHEEM FRAZIER.
--- NOTE | 2019-02-18 18:35 | NUR ---
Patient in room PCU 3027. I have received report from Felicitas MAYEN and had the opportunity to ask questions and assume patient care.
[2019-02-18] MEDS: sacubitril/valsartan 24mg-26mg tablet PO SCH (19:19)
[2019-02-18] MEDS: atorvastatin 10mg tablet PO SCH (21:22)
[2019-02-18] MEDS: gabapentin 100mg capsule PO SCH (21:22)
[2019-02-18] MEDS: insulin glargine (Lantus) pen - multi-dose SQ SCH (21:26)
[2019-02-19 02:00] VITALS: BP 118/52
[2019-02-19 05:17] LABS: BASOPHILS # (AUTO) 0.1 X10'3 (0-0.2); BASOPHILS % (AUTO) 0.8 % (0-1); EOSINOPHILS # (AUTO) 0.3 X10'3 (0-0.9); EOSINOPHILS % (AUTO) 4.5 % (0-6); HEMOGLOBIN 10.1 g/dl (14.0-17.9); LYMPHOCYTES # (AUTO) 1.3 X10'3 (1.1-4.8); MEAN CORPUSCULAR HEMOGLOBIN 29.2 PG (27.0-31.0); MEAN CORPUSCULAR HGB CONC 33.7 g/dL (33.0-36.5); MEAN CORPUSCULAR VOLUME 86.5 FL (78-98); MEAN PLATELET VOLUME 8.2 FL (7.4-10.4); MONOCYTES # (AUTO) 0.9 X10'3 (0-0.9); MONOCYTES % (AUTO) 13.7 % (2-12); NEUTROPHILS # (AUTO) 4.1 X10'3 (1.8-7.7); PLATELET COUNT 247 X10'3 (140-440); RED BLOOD COUNT 3.47 X10'6 (4.70-6.10); RED CELL DISTRIBUTION WIDTH 15.4 % (11.5-14.5); WHITE BLOOD COUNT 6.6 X10'3 (4.5-11.0)
[2019-02-19 05:36] LABS: ALANINE AMINOTRANSFERASE 28 U/L (12-78); ALBUMIN 1.5 G/DL (3.4-5.0); ALBUMIN/GLOBULIN RATIO 0.4 (1.1-1.5); ALKALINE PHOSPHATASE 66 IU/L (46-116); ANION GAP 4 (8-16); ASPARTATE AMINO TRANSFERASE 35 U/L (10-37); BILIRUBIN,TOTAL 0.3 MG/DL (0.1-1.0); BLOOD UREA NITROGEN 15 MG/DL (7-18); BUN/CREATININE RATIO 11.9 (5.4-32.0); CALCIUM 8.6 MG/DL (8.5-10.1); CHLORIDE 106 MMOL/L (99-107); CREATININE 1.26 MG/DL (0.60-1.10); GLUCOSE 198 MG/DL (70-104); MAGNESIUM 1.4 MG/DL (1.5-2.4); POTASSIUM 3.8 MMOL/L (3.5-5.1); SODIUM 142 MMOL/L (135-145); TOTAL CARBON DIOXIDE 32.3 MMOL/L (24-32); TOTAL PROTEIN 5.6 G/DL (6.4-8.2); eGFR 55 ML/MIN
--- NOTE | 2019-02-19 06:24 | NUR ---
Problems reprioritized. Patient report given, questions answered & plan of care reviewed with Samantha MAYEN.
--- NOTE | 2019-02-19 06:24 | NUR ---
Patient in room PCU 3022R. I have received report from Rekha MAYEN and had the opportunity to ask questions and assume patient care.
[2019-02-19 06:30] VITALS: BP 132/64
[2019-02-19] MEDS: levoTHYROXINE 75mcg tablet PO SCH (07:38)
[2019-02-19] MEDS: ondansetron/PF 4mg/2ml inj IV PRN (07:54)
[2019-02-19] MEDS: cyanocobalamin 500mcg tablet PO SCH (08:00)
[2019-02-19] MEDS: NUT.TX.GLUC.INTOLER,LAC-FR,SOY (GLUCERNA) 237 ML PO SCH ×3 (08:00→18:00)
[2019-02-19] MEDS: polyethylene glycol 3350 17gm powd pack PO SCH (09:06)
[2019-02-19] MEDS: carvedilol 6.25mg tablet PO SCH ×2 (09:10→20:33)
[2019-02-19] MEDS: pantoprazole 40mg Tablet.DR PO SCH ×2 (09:11→20:33)
[2019-02-19] MEDS: aspirin 81mg tablet.DR PO SCH (09:11)
[2019-02-19] MEDS: multivitamins, therapeutics tablet PO SCH (09:11)
[2019-02-19] MEDS: ferrous sulfate 325mg tablet PO SCH (09:12)
[2019-02-19] MEDS: spironolactone 25 MG tablet PO SCH (09:12)
[2019-02-19] MEDS: lactobacillus rhamnosus 10,000 MMU CELLS/CAPSULE PO SCH ×2 (09:12→20:32)
[2019-02-19] MEDS: sacubitril/valsartan 24mg-26mg tablet PO SCH ×2 (09:12→20:31)
[2019-02-19] MEDS: clopidogrel 75mg tablet PO SCH (09:12)
[2019-02-19] MEDS: digoxin 250mcg (0.25mg) tablet PO SCH (09:13)
[2019-02-19] MEDS: docusate sod 100mg capsule PO SCH ×2 (09:14→20:32)
[2019-02-19] MEDS: furosemide 40mg/4ml inj IV SCH ×2 (09:15→20:34)
[2019-02-19] MEDS: insulin Lispro (HumaLOG) vial - multi-dose SQ SCH ×3 (09:23→18:38)
[2019-02-19 11:00] VITALS: BP 132/91
[2019-02-19] MEDS: magnesium Cl slow-release 64mg tablet PO PRN ×2 (12:56→20:33)
[2019-02-19 15:43] LABS: HEMATOCRIT 33.9 % (42.0-52.0); HEMOGLOBIN 11.2 g/dl (14.0-17.9); MEAN CORPUSCULAR HEMOGLOBIN 28.9 PG (27.0-31.0); MEAN CORPUSCULAR HGB CONC 32.9 g/dL (33.0-36.5); MEAN CORPUSCULAR VOLUME 87.6 FL (78-98); MEAN PLATELET VOLUME 8.2 FL (7.4-10.4); PLATELET COUNT 255 X10'3 (140-440); RED BLOOD COUNT 3.87 X10'6 (4.70-6.10); RED CELL DISTRIBUTION WIDTH 15.4 % (11.5-14.5); WHITE BLOOD COUNT 8.3 X10'3 (4.5-11.0)
--- NOTE | 2019-02-19 18:05 | NUR ---
Problems reprioritized. Patient report given, questions answered & plan of care reviewed with Rekha MAYEN.
--- NOTE | 2019-02-19 18:33 | NUR ---
Patient in room PCU 3027. I have received report from Samantha MAYEN and had the opportunity to ask questions and assume patient care.
[2019-02-19 19:00] VITALS: BP 138/66
[2019-02-19] MEDS: insulin glargine (Lantus) pen - multi-dose SQ SCH (20:29)
[2019-02-19] MEDS: atorvastatin 10mg tablet PO SCH (20:32)
[2019-02-19] MEDS: gabapentin 100mg capsule PO SCH (20:33)
[2019-02-19] MEDS: magnesium hydroxide 30ml (MOM) UD suspension PO PRN (20:34)
[2019-02-19 22:00] VITALS: BP 120/46
[2019-02-20 02:00] VITALS: BP 117/42
[2019-02-20 05:38] LABS: BASOPHILS # (AUTO) 0.1 X10'3 (0-0.2); BASOPHILS % (AUTO) 0.8 % (0-1); EOSINOPHILS # (AUTO) 0.5 X10'3 (0-0.9); EOSINOPHILS % (AUTO) 7.5 % (0-6); HEMATOCRIT 31.2 % (42.0-52.0); HEMOGLOBIN 10.6 g/dl (14.0-17.9); LYMPHOCYTES # (AUTO) 1.3 X10'3 (1.1-4.8); LYMPHOCYTES % (AUTO) 19.8 % (21-51); MEAN CORPUSCULAR HEMOGLOBIN 29.1 PG (27.0-31.0); MEAN CORPUSCULAR HGB CONC 33.8 g/dL (33.0-36.5); MEAN PLATELET VOLUME 8.5 FL (7.4-10.4); MONOCYTES # (AUTO) 0.8 X10'3 (0-0.9); MONOCYTES % (AUTO) 12.4 % (2-12); NEUTROPHILS % (AUTO) 59.5 % (42-75); PLATELET COUNT 249 X10'3 (140-440); RED BLOOD COUNT 3.63 X10'6 (4.70-6.10); RED CELL DISTRIBUTION WIDTH 15.5 % (11.5-14.5); WHITE BLOOD COUNT 6.7 X10'3 (4.5-11.0)
[2019-02-20 05:51] LABS: ALANINE AMINOTRANSFERASE 25 U/L (12-78); ALBUMIN 1.5 G/DL (3.4-5.0); ALBUMIN/GLOBULIN RATIO 0.4 (1.1-1.5); ALKALINE PHOSPHATASE 69 IU/L (46-116); ANION GAP 6 (8-16); ASPARTATE AMINO TRANSFERASE 28 U/L (10-37); BILIRUBIN,TOTAL 0.3 MG/DL (0.1-1.0); BLOOD UREA NITROGEN 15 MG/DL (7-18); BUN/CREATININE RATIO 11.8 (5.4-32.0); CALCIUM 8.3 MG/DL (8.5-10.1); CHLORIDE 104 MMOL/L (99-107); CREATININE 1.27 MG/DL (0.60-1.10); GLUCOSE 224 MG/DL (70-104); MAGNESIUM 1.6 MG/DL (1.5-2.4); POTASSIUM 3.6 MMOL/L (3.5-5.1); SODIUM 143 MMOL/L (135-145); TOTAL CARBON DIOXIDE 33.2 MMOL/L (24-32); TOTAL PROTEIN 5.5 G/DL (6.4-8.2); eGFR 54 ML/MIN
--- NOTE | 2019-02-20 06:05 | NUR ---
Problems reprioritized. Patient report given, questions answered & plan of care reviewed with Samantha MAYEN.
--- NOTE | 2019-02-20 06:15 | NUR ---
Patient in room PCU 3023N. I have received report from Rekha MAYEN and had the opportunity to ask questions and assume patient care.
[2019-02-20 06:30] VITALS: BP 141/61
--- NOTE | 2019-02-20 07:46 | NUR ---
Paged Dr Loco PAGER ID: [phone] MESSAGE: Samantha [phone]. RE Prachi Tran [id number]. Pt is complaining of abd pain (No BM since 02/14) and does not want medication for it. Would you like any new orders? ( requesting imaging if that is okay with you). Thank you!
[2019-02-20] MEDS: clopidogrel 75mg tablet PO SCH ×2 (08:00→09:21)
[2019-02-20] MEDS: docusate sod 100mg capsule PO SCH ×3 (08:00→21:04)
[2019-02-20] MEDS: pantoprazole 40mg Tablet.DR PO SCH ×3 (08:00→21:04)
[2019-02-20] MEDS: carvedilol 6.25mg tablet PO SCH ×3 (08:00→21:11)
[2019-02-20] MEDS: levoTHYROXINE 75mcg tablet PO SCH (08:00)
[2019-02-20] MEDS: digoxin 250mcg (0.25mg) tablet PO SCH ×2 (08:00→09:20)
[2019-02-20] MEDS: ferrous sulfate 325mg tablet PO SCH ×2 (08:00→09:18)
[2019-02-20] MEDS: polyethylene glycol 3350 17gm powd pack PO SCH ×2 (08:00→09:18)
[2019-02-20] MEDS: lactobacillus rhamnosus 10,000 MMU CELLS/CAPSULE PO SCH ×3 (08:00→21:04)
[2019-02-20] MEDS: cyanocobalamin 500mcg tablet PO SCH ×2 (08:00→09:21)
[2019-02-20] MEDS: multivitamins, therapeutics tablet PO SCH ×2 (08:00→09:21)
[2019-02-20] MEDS: sacubitril/valsartan 24mg-26mg tablet PO SCH ×2 (08:00→21:11)
[2019-02-20] MEDS: NUT.TX.GLUC.INTOLER,LAC-FR,SOY (GLUCERNA) 237 ML PO SCH ×3 (08:08→21:03)
[2019-02-20] MEDS: aspirin 81mg tablet.DR PO SCH ×2 (08:30→09:19)
[2019-02-20] MEDS ORDERED: albuterol 2.5 MG/3 ML nebule NEB PRN (08:30)
[2019-02-20] MEDS: spironolactone 25 MG tablet PO SCH ×2 (08:30→09:21)
[2019-02-20] MEDS: furosemide 40mg/4ml inj IV SCH ×2 (08:36→21:03)
[2019-02-20] MEDS: insulin Lispro (HumaLOG) vial - multi-dose SQ SCH ×3 (08:37→19:34)
[2019-02-20] MEDS: gabapentin 100mg capsule PO SCH (09:18)
[2019-02-20 11:00] VITALS: BP 124/61
--- NOTE | 2019-02-20 12:53 | NUR ---
Paged Dr Loco PAGER ID: [phone] MESSAGE: Samantha de jesus [phone]. RE Prachi Tran [id number]. Daughter is bedside and is asking to speak with you. Family is also requesting appetite stimulant medication if possible. Thank you
[2019-02-20 15:00] VITALS: BP 123/60
--- NOTE | 2019-02-20 15:06 | NUR ---
Lab was able to access vein for lab draws, but blood would not draw all the way. 2 attempts made and refused further attempts. Let Dr Loco know PAGER ID: [phone] MESSAGE: Samantha de jesus [phone]. RE Prachi Tran [id number]. Daughter is bedside and is asking to speak with you. Family is also requesting appetite stimulant medication if possible. Thank you
--- NOTE | 2019-02-20 15:27 | NUR ---
Nutrition consult re: "family requested nutrition consult". Patient and SO seen at bedside. Pt currently on a CHO controlled diet however SO requesting the addition of the heart healthy diet given pt with heart failure and recent episode of acute cholecystitis, notified and diet order has been adjusted. Pt now on heart healthy CHO controlled diet. Per SO pt has full dentures however is refusing to wear them at this time making it difficult for pt to eat, pt/SO agreeable to grind all, d/w dietary. Pt documented with 0-25% PO intake of meals and ONS not meeting nutrient needs. Glucerna at bedside at the time of visit with ~50% consumption. Noted that SO requesting appetite stimulant per RN notes. SO requested soup TID. All food preferences d/w dietary. Pt/SO provided with alternative CHO controlled write in menu to expand food options as well as ONS coupons and RD contact information. Pt admit with acute NSTEMI s/p cardiac catheterization and acute decompensated heart failure acute systolic heart failure, diuresing well with IV Lasix per MD notes. LBM 02/14. Pt receiving routine Colace and MiraLax with PRN MoM last given 02/19. Will continue to follow. Recommendations: 1) Continue heart healthy CHO controlled diet 2) Continue Glucerna TID 3) Grind all TID; soup TID 4) [place] food preferences; encourage PO intake 5) Routine bowel care 6) Wt per rx Addendum: 02/20/19 at [address] Amended: Links added.
--- NOTE | 2019-02-20 18:34 | NUR ---
Problems reprioritized. Patient report given, questions answered & plan of care reviewed with Rekha MAYEN.
--- NOTE | 2019-02-20 18:49 | NUR ---
Patient in room PCU 3027. I have received report from Samantha MAYEN and had the opportunity to ask questions and assume patient care.
[2019-02-20 19:00] VITALS: BP 136/62
[2019-02-20] MEDS: atorvastatin 10mg tablet PO SCH (21:04)
[2019-02-20] MEDS: magnesium hydroxide 30ml (MOM) UD suspension PO PRN (21:11)
[2019-02-20] MEDS: insulin glargine (Lantus) pen - multi-dose SQ SCH (21:27)
[2019-02-20 23:00] VITALS: BP 139/62
[2019-02-21 03:41] VITALS: BP 139/62
[2019-02-21 05:01] LABS: BASOPHILS % (AUTO) 0.7 % (0-1); EOSINOPHILS # (AUTO) 0.6 X10'3 (0-0.9); EOSINOPHILS % (AUTO) 7.8 % (0-6); HEMATOCRIT 33.3 % (42.0-52.0); HEMOGLOBIN 11.1 g/dl (14.0-17.9); LYMPHOCYTES # (AUTO) 1.4 X10'3 (1.1-4.8); LYMPHOCYTES % (AUTO) 19.2 % (21-51); MEAN CORPUSCULAR HGB CONC 33.2 g/dL (33.0-36.5); MEAN CORPUSCULAR VOLUME 87.6 FL (78-98); MEAN PLATELET VOLUME 8.4 FL (7.4-10.4); MONOCYTES # (AUTO) 0.8 X10'3 (0-0.9); NEUTROPHILS # (AUTO) 4.4 X10'3 (1.8-7.7); NEUTROPHILS % (AUTO) 61.3 % (42-75); PLATELET COUNT 260 X10'3 (140-440); RED BLOOD COUNT 3.81 X10'6 (4.70-6.10); RED CELL DISTRIBUTION WIDTH 15.6 % (11.5-14.5); WHITE BLOOD COUNT 7.2 X10'3 (4.5-11.0)
[2019-02-21 05:12] LABS: ALANINE AMINOTRANSFERASE 29 U/L (12-78); ALBUMIN 1.6 G/DL (3.4-5.0); ALBUMIN/GLOBULIN RATIO 0.4 (1.1-1.5); ALKALINE PHOSPHATASE 74 IU/L (46-116); ANION GAP 3 (8-16); ASPARTATE AMINO TRANSFERASE 30 U/L (10-37); BILIRUBIN,TOTAL 0.3 MG/DL (0.1-1.0); BLOOD UREA NITROGEN 17 MG/DL (7-18); BUN/CREATININE RATIO 12.9 (5.4-32.0); CALCIUM 9.2 MG/DL (8.5-10.1); CHLORIDE 104 MMOL/L (99-107); CREATININE 1.32 MG/DL (0.60-1.10); GLUCOSE 237 MG/DL (70-104); POTASSIUM 3.7 MMOL/L (3.5-5.1); SODIUM 142 MMOL/L (135-145); TOTAL CARBON DIOXIDE 35.5 MMOL/L (24-32); TOTAL PROTEIN 5.6 G/DL (6.4-8.2); eGFR 52 ML/MIN
[2019-02-21 06:00] VITALS: BP 137/60
--- NOTE | 2019-02-21 06:32 | NUR ---
Problems reprioritized. Patient report given, questions answered & plan of care reviewed with Breanna MAYEN.
--- NOTE | 2019-02-21 06:38 | NUR ---
Patient in room PCU 3027. I have received report from FAHEEM Da Silva and had the opportunity to ask questions and assume patient care. Patient is currently sleeping in bed, bed locked and low, call light in reach, no acute distress, will continue to monitor.
[2019-02-21] MEDS: pantoprazole 40mg Tablet.DR PO SCH (07:39)
[2019-02-21] MEDS: furosemide 40mg/4ml inj IV SCH (07:39)
[2019-02-21] MEDS: multivitamins, therapeutics tablet PO SCH (07:40)
[2019-02-21] MEDS: digoxin 250mcg (0.25mg) tablet PO SCH (07:46)
[2019-02-21] MEDS: docusate sod 100mg capsule PO SCH (07:47)
[2019-02-21] MEDS: ferrous sulfate 325mg tablet PO SCH (07:47)
[2019-02-21] MEDS: clopidogrel 75mg tablet PO SCH (07:48)
[2019-02-21] MEDS: lactobacillus rhamnosus 10,000 MMU CELLS/CAPSULE PO SCH (07:49)
[2019-02-21] MEDS: levoTHYROXINE 75mcg tablet PO SCH (07:49)
[2019-02-21] MEDS: carvedilol 6.25mg tablet PO SCH (07:50)
[2019-02-21] MEDS: cyanocobalamin 500mcg tablet PO SCH (07:51)
[2019-02-21] MEDS: sacubitril/valsartan 24mg-26mg tablet PO SCH (07:51)
[2019-02-21] MEDS: aspirin 81mg tablet.DR PO SCH (07:52)
[2019-02-21] MEDS: ondansetron/PF 4mg/2ml inj IV PRN (07:53)
[2019-02-21] MEDS: spironolactone 25 MG tablet PO SCH (07:53)
[2019-02-21] MEDS: polyethylene glycol 3350 17gm powd pack PO SCH (08:00)
[2019-02-21] MEDS: NUT.TX.GLUC.INTOLER,LAC-FR,SOY (GLUCERNA) 237 ML PO SCH ×2 (08:00→09:00)
[2019-02-21] MEDS: insulin Lispro (HumaLOG) vial - multi-dose SQ SCH ×2 (09:48→13:36)
[2019-02-21 11:00] VITALS: BP 131/63
[2019-02-21 15:00] VITALS: BP 145/75
--- NOTE | 2019-02-21 15:10 | NUR ---
received order for patient tx to [facility], report called to Robert at facility, telemetry removed, patient sent via [facility], stable at time of discharge.
== END 2019-02-21 15:19 | DRG 280 ==
LOC: EDSEX 00:41 → ER 00:41 → PCU 3S 11:22 → CMPBEDREQ 02-19 18:05
PROVIDERS: ADMIT Internal Medicine; ATTEND Internal Medicine
PROC: 30233N1 Transfusion of Nonautologous Red Blood Cells into Peripheral Vein, Percutaneous Approach (ICD-10-PCS; 2019-02-16)
PROC: 4A023N7 Measurement of Cardiac Sampling and Pressure, Left Heart, Percutaneous Approach (ICD-10-PCS; principal; 2019-02-17)
PROC: B2111ZZ Fluoroscopy of Multiple Coronary Arteries using Low Osmolar Contrast (ICD-10-PCS; 2019-02-17)
PROC: B2151ZZ Fluoroscopy of Left Heart using Low Osmolar Contrast (ICD-10-PCS; 2019-02-17)
PROC: B2131ZZ Fluoroscopy of Multiple Coronary Artery Bypass Grafts using Low Osmolar Contrast (ICD-10-PCS; 2019-02-17)
DX: I50.23 Acute on chronic systolic (congestive) heart failure (principal); I21.4 Non-ST elevation (NSTEMI) myocardial infarction; E43 Unspecified severe protein-calorie malnutrition; J18.1 Lobar pneumonia, unspecified organism; N17.9 Acute kidney failure, unspecified; I13.0 Hypertensive heart and chronic kidney disease with heart failure and stage 1 through stage 4 chronic kidney disease, or unspecified chronic kidney disease; E03.9 Hypothyroidism, unspecified; D64.9 Anemia, unspecified; K59.00 Constipation, unspecified; E11.319 Type 2 diabetes mellitus with unspecified diabetic retinopathy without macular edema; E78.5 Hyperlipidemia, unspecified; E11.22 Type 2 diabetes mellitus with diabetic chronic kidney disease; E11.40 Type 2 diabetes mellitus with diabetic neuropathy, unspecified; E78.00 Pure hypercholesterolemia, unspecified; M54.9 Dorsalgia, unspecified; G89.29 Other chronic pain; I25.10 Atherosclerotic heart disease of native coronary artery without angina pectoris; N18.9 Chronic kidney disease, unspecified; N40.0 Benign prostatic hyperplasia without lower urinary tract symptoms; R62.7 Adult failure to thrive; Z85.46 Personal history of malignant neoplasm of prostate; Z86.73 Personal history of transient ischemic attack (TIA), and cerebral infarction without residual deficits; Z95.1 Presence of aortocoronary bypass graft; I25.2 Old myocardial infarction; Z91.018 Allergy to other foods; Z79.899 Other long term (current) drug therapy; Z79.4 Long term (current) use of insulin; Z68.30 Body mass index [BMI] 30.0-30.9, adult
CPT/HCPCS: 36415; 36430; 71045; 80053; 80061; 81003; 82948; 83605; 83735; 83880; 84145; 84484; 85025; 85027; 85610; 85730; 86885; 86900; 86901; 86920; 87040; 93005; 93308; 93459; 94667; 94760; 96365; 96368; 97110; 97161; 97530; 99152; 99285; A4620; A6258; C1769; C9113; G0378; J0456; J0692; J0780; J1644; J1815; J1940; J2001; J2250; J2405; J3010; J3370; P9016; Q9967